=== PATIENT | female | born 1950 | race Caucasian/White ===

== ENCOUNTER 2021-05-14 07:15 | Outpatient (REF) | payer MEDICARE, BC, SELFPAY ==
[2021-05-14 10:47] LABS: MANUAL DIFF FLAG NO
[2021-05-14 10:49] LABS: Basophils Percent Auto 0.7 % (0-2); Eosinophils Absolute Auto 0.4 X10*3/uL (0.0-0.4); Eosinophils Percent Auto 7.1 % (0-4); Hematocrit 44.4 % (37.0-47.0); Hemoglobin 14.4 g/dl (12.0-16.0); Imm Gran Abs Auto 0.01 X10*3/uL (0.00-0.03); Imm Gran Pct Auto 0.2 % (0.0-0.4); Lymphocytes Percent Auto 34.4 % (20-40); Mean Corpuscular HGB Conc 32.4 g/dl (31.0-35.0); Mean Corpuscular Hemoglobin 30.6 pg (27.0-33.0); Mean Corpuscular Volume 94.5 fL (80.0-98.0); Mean Platelet Volume 10.9 fL (9.4-12.3); Monocytes Absolute Auto 0.5 X10*3/uL (0.1-1.2); Neutrophils Absolute Auto 2.9 x10*3/uL (2.0-8.3); Neutrophils Percent Auto 49.6 % (45-73); Platelet Count 281 X10*3/uL (160-400); Red Cell Distribution Width 13.2 % (11.0-16.0); White Blood Count 5.9 X10*3/uL (4.8-10.8)
[2021-05-14 11:14] LABS: Alanine Aminotransferase 13 U/L (0-31); Albumin Level 3.9 g/dL (3.5-5.0); Alkaline Phosphatase 84 U/L (39-117); Anion Gap 9 (12-20); Aspartate Amino Transferase 16 U/L (5-31); Bilirubin Total 0.4 mg/dL (0.0-1.0); Blood Urea Nitrogen 13 mg/dL (9-16); Calcium 8.9 mg/dL (8.4-10.2); Carbon Dioxide 28 mmol/L (22-29); Chloride 108 mmol/L (96-108); Cholesterol 199 mg/dL; Estimated Glomerular Filt Rate > 60; Glucose Fasting 100 mg/dL (60-99); HDL Cholesterol 50 mg/dL; LDL Cholesterol Calculated 124 mg/dl; Potassium 4.1 mmol/L (3.3-5.1); Sodium 141 mmol/L (135-145); Total Protein 6.5 g/dL (6.5-8.0); Triglycerides 125 mg/dL
[2021-05-14 11:24] LABS: Thyroid Stimulating Hormone 1.13 uIU/mL (0.32-4.0); Vitamin D 25-OH Total 23.8 ng/mL (>30)
== END 2021-05-14 07:16 | disposition home or self-care (01) ==
LOC: HO.WFDLDS 07:15
PROVIDERS: Visit Provider Internal Medicine
DX: M25.561 Pain in right knee (principal); G47.9 Sleep disorder, unspecified
CPT/HCPCS: 36415; 80053; 80061; 82306; 84443; 85025

== ENCOUNTER 2021-05-16 06:59 | Outpatient (REF) | payer MEDICARE, BC, SELFPAY ==
--- NOTE | ~2021-05-16 | XR_ITS ---
EXAMINATION: KNEE X-RAY CLINICAL INFORMATION: Right knee pain COMPARISON: None TECHNIQUE: Standing AP view of both knees and lateral and sunrise view of the right knee FINDINGS: Right: Bone alignment is normal. No fracture or dislocation is seen. There is arthritis at the femoral tibial and patellofemoral joints. There is no joint effusion. Standing AP view of the left knee demonstrates joint space narrowing at the femoral tibial joints. XR/XR knee RT 2V IMPRESSION: Right knee arthritis.
--- NOTE | ~2021-05-16 | XR_ITS ---
EXAMINATION: KNEE X-RAY CLINICAL INFORMATION: Right knee pain COMPARISON: None TECHNIQUE: Standing AP view of both knees and lateral and sunrise view of the right knee FINDINGS: Right: Bone alignment is normal. No fracture or dislocation is seen. There is arthritis at the femoral tibial and patellofemoral joints. There is no joint effusion. Standing AP view of the left knee demonstrates joint space narrowing at the femoral tibial joints. XR/XR knee standing BI IMPRESSION: Right knee arthritis.
== END 2021-05-16 07:00 | disposition home or self-care (01) ==
LOC: HO.HOSX 06:59
PROVIDERS: Visit Provider Physician Assistant
DX: M17.0 Bilateral primary osteoarthritis of knee (principal)
CPT/HCPCS: 73560; 73565

== ENCOUNTER 2021-09-24 11:00 | Outpatient (RCR) | payer MEDICARE, SELFPAY ==
--- NOTE | 2021-06-04 12:48 | MHC.PT.EP ---
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 Pt REPORTS KNEE HAS BEEN HURTING HER FOR ABOUT 1 MONTH WITHOUT INJURY BUT REPORTS SOME HX OF KNEE ISSUES. PRESENTS WITH LIMITED KNEE EXTENSION, POOR QUAD CONTRACTION, GENU VALGUS, PAIN WITH STAIRS. OF NOTE, Pt'S R LEG WITH GREATER GIRTH THAN L. (Pt REPORTS IT HAS ALWAYS BEEN LIKE THIS). Pt SHOULD BENEFIT FROM PT TO ADDRESS THESE ISSUES. Pt WITH NEG MENISCUS TEST, BUT C/O SHARP PAIN AT TIMES. IF THIS CONTINUES, MAY BE APPROPRIATE TO HAVE MRI Frequency and Duration: The patient will be seen 2X/WK X 2 WKS THEN 1X/WK X 2-4 WKS Short Term Goals: 1. INCREASED AWARENESS KNEE CARE WITH SELF TAPING 2. I HEP WITH DC EX PLAN Assisted Goals: 1. DECREASED PAIN R KNEE ( SHARP PAIN) AT LEAST 50 % WITH ADLS 2. NO R KNEE BUCKLING INCIDENTS 3. IMPROVED STAIR NEGOTIATION AND WALKING DISTANCE WITH LESS KNEE PAIN/ STIFFNESS Treatment Plan: Modalities to reduce pain, spasms and effusion. Manual therapy to restore motion and function. Therapeutic exercise to improve strength and flexibility. Neuromuscular re-education for posture and balance. Therapeutic activities to return to functional activities of daily living. Electronically signed by: BARBARA SANDY PT Please sign and return to therapist. Thank you for your referral.
--- NOTE | 2021-09-24 11:59 | MHC.PT.DC ---
[facility] [place] Office [place] Office [place] Office [address] Claire Norton [address] [phone] F: [phone] F: [phone] F: [phone] F: [phone] Physical Therapy Discharge Report Diagnosis: KNEE PAIN Date of Surgery: NA Date of Evaluation: 06/04/21 Date of Discharge: 09/24/21 Treatments to Date: 7 Cancellations to Date: No Shows to Date: Discharge Status: Achieved Goals Improved Function Independent with HEP Discharge Summary: SOME DISCOMFORT LAT L KNEE WITH SL HIP ABD (ED TO MONITOR, IF CONTINUES, DC THIS EXERCISE) HAS MET PT GOALS Electronically signed by: BARBARA SANDY PT Please sign and return to therapist. Thank you for your referral.
== END 2021-09-24 11:59 | disposition home or self-care (01) ==
LOC: HO.PTWFD 11:00
PROVIDERS: PCP Internal Medicine; Visit Provider Physician Assistant
DX: M17.0 Bilateral primary osteoarthritis of knee (principal)
CPT/HCPCS: 97110; 97140; 97161; 97535

== ENCOUNTER 2021-11-07 09:43 | Emergency (ER) | payer MEDICARE, SELFPAY ==
[2021-11-07 09:53] VITALS: BP 202/97; PULSE 78; RESP 20; O2SAT 98; BMI 28.6
--- NOTE | 2021-11-07 10:09 | ED.ALLEREA ---
HPI - Allergic Reaction General Chief complaint: Allergic Reaction Stated complaint: ALLERGIC REACTION Time Seen by Provider: 11/07/21 10:09 Source: patient Mode of arrival: EMS History of Present Illness HPI narrative: 71-year-old female was brought in by EMS after she was stung by multiple bees while gardening, she took some Benadryl and then stated she became concerned because her mouth was dry and she felt some scratchiness at the back her throat but denies any facial/lip/tongue swelling. Patient went to the urgent care and at that facility patient received Benadryl, steroids, EpiPen and then was transported here by EMS for evaluation. Currently patient states she is breathing without difficulty, has some scratchiness at the back of her throat but denies any swelling within her mouth or tongue. Related Data Previous Rx's Medication Instructions Recorded epinephrine 0.3 mg/0.3 mL 0.3 mg (0.3 mL) IM Q5M PRN 11/07/21 injection, auto-injector anaphylaxis #2 ea Allergies Allergy/AdvReac Type Severity Reaction Status Date / Time midazolam [From VERSED] Allergy Unknown AMNESIA Verified 05/16/21 08:16 FOR ONE WEEK Review of Systems Review of Systems: Pertinent positives and negatives as stated in HPI 10 point review of systems is otherwise negative. PMFSH Past Medical History Source: nursing notes reviewed Medical History (Updated 11/07/21 @ 12:45 by Shireen Alexandra MD) Colostomy in place Surgical History (Updated 05/16/21 @ 08:19 by Kari Livingston CMA) H/O section History of cataract surgery Social History Social History (Updated 05/16/21 @ 08:17 by Kari Livingston CMA) Patient Tobacco Use Status: Never used Tobacco Use of substances other than those prescribed or required for medical reasons: No Advance Directives: Yes Advance Directives Information Provided: Yes Advance Directives on File: No Current occupational status: retired Physical Exam ED Vital Signs: Vital Signs - 24 hr 11/07/21 09:53 Pulse Rate 78 Respiratory Rate 20 Blood Pressure 202/97 H Pulse Oximetry 98 Oxygen Delivery Method Room Air BMI result Body Mass Index 28.6 VITAL SIGNS: Reviewed. GENERAL: Well developed, well nourished, in no acute distress. HEAD: Normocephalic/atraumatic EYES: PERRLA, EOMI EARS: Ext canals without abnormality NOSE: Nares patent bilateral OROPHARYNX: no oral lesions noted, posterior pharynx clear, no facial/lip/tongue swelling NECK: Supple, no adenopathy LUNGS: Normal breath sounds, no tachypnea/wheeze/rhonchi/rales, no stridor. SpO2<98> CARDIOVASCULAR: Regular rate and rhythm without noted murmurs, no JVD or lower extremity edema. ABDOMEN: Soft, non-tender, non-distended with bowel sounds. MUSCULOSKELETAL: No tenderness, deformities, or effusions noted on gross inspection. EXTREMITIES: No cyanosis, clubbing or edema. SKIN: Inspection of the skin reveals no rashes NEUROLOGIC: Alert and oriented x 4. Strength and sensation to light touch were grossly intact x 4. Course Course Course Narrative: 71-year-old female with multiple bee stings and no overt evidence anaphylaxis or angioedema, however with scratchy throat patient was fully treated, denies any chest pain and otherwise appears well and is hemodynamically stable. She will be placed on monitors for 4 hours. Discharge Plan Discharge Clinical Impression: Bee sting reaction, Allergic reaction Patient Disposition: Home, Self-Care Instructions: Insect Bite or Sting (ED), General Allergic Reaction (ED) Additional Instructions: 1. You have been prescribed an EpiPen and should carry this with you at all times. 2. Please follow-up with primary care provider. Return to the ER for worsening symptoms. Prescriptions: New epinephrine 0.3 mg/0.3 mL auto-injector 0.3 mg IM Q5M PRN (Reason: anaphylaxis) Qty: 2 0RF Referrals: Rudy Chatterjee DO [Primary Care Provider] -
--- NOTE | 2021-11-07 11:11 | PC.NURSE ---
Pt resting comfortably, offers no complaints at this time. NSR on tele. No edema to mouth/lips, LS CTA. Speaking full sentences
[2021-11-07 12:51] VITALS: BP 134/85; PULSE 89; RESP 18; O2SAT 98
--- NOTE | 2021-11-07 13:26 | PC.NURSE ---
PT AWAKE, ALERT AND ORIENTED X 3. SKIN WARM AND DRY. RESP UNLABORED. DENIES N/V. AIRWAY PATENT. MANAGING SECRETIONS. SPEAKING IN FULL CLEAR SENTENCES NO ACUTE DISTRESS NOTED. IV REMOVED. AGREEABLE TO DC HOME.
== END 2021-11-07 13:32 | disposition home or self-care (01) ==
PROVIDERS: Emergency Provider Student in an Organized Health Care Education/Training Program; PCP Internal Medicine
DX: T63.441A Toxic effect of venom of bees, accidental (unintentional), initial encounter (principal); Y93.9 Activity, unspecified; Y92.9 Unspecified place or not applicable; Y99.9 Unspecified external cause status; Z79.899 Other long term (current) drug therapy
CPT/HCPCS: 99283; 99284

== ENCOUNTER 2022-05-18 09:05 | Outpatient (REF) | payer MEDICARE, SELFPAY ==
[2022-05-18 11:41] LABS: MANUAL DIFF FLAG NO
[2022-05-18 12:06] LABS: Basophils Percent Auto 0.4 % (0-2); Eosinophils Absolute Auto 0.3 X10*3/uL (0.0-0.4); Hematocrit 44.3 % (37.0-47.0); Hemoglobin 14.6 g/dl (12.0-16.0); Imm Gran Abs Auto 0.01 X10*3/uL (0.00-0.03); Imm Gran Pct Auto 0.1 % (0.0-0.4); Lymphocytes Absolute Auto 1.8 X10*3/uL (1.2-4.9); Mean Corpuscular Hemoglobin 30.9 pg (27.0-33.0); Mean Corpuscular Volume 93.9 fL (80.0-98.0); Mean Platelet Volume 11.4 fL (9.4-12.3); Monocytes Absolute Auto 0.5 X10*3/uL (0.1-1.2); Monocytes Percent Auto 7.1 % (2-11); Neutrophils Absolute Auto 4.2 x10*3/uL (2.0-8.3); Neutrophils Percent Auto 62.4 % (45-73); Platelet Count 214 X10*3/uL (160-400); Red Blood Count 4.72 X10*6/uL (4.20-5.50); Red Cell Distribution Width 13.2 % (11.0-16.0); White Blood Count 6.8 X10*3/uL (4.8-10.8)
[2022-05-18 12:22] LABS: Alanine Aminotransferase 11 U/L (0-31); Albumin Level 3.9 g/dL (3.5-5.0); Alkaline Phosphatase 88 U/L (39-117); Anion Gap 12 (12-20); Aspartate Amino Transferase 17 U/L (5-31); Bilirubin Total 0.6 mg/dL (0.0-1.0); Blood Urea Nitrogen 14 mg/dL (9-16); Carbon Dioxide 27 mmol/L (22-29); Chloride 109 mmol/L (96-108); Cholesterol 209 mg/dL; Estimated Glomerular Filt Rate > 60; Glucose Fasting 93 mg/dL (60-99); HDL Cholesterol 52 mg/dL; LDL Cholesterol Calculated 134 mg/dl; Potassium 4.6 mmol/L (3.3-5.1); Sodium 143 mmol/L (135-145); Total Protein 6.2 g/dL (6.5-8.0); Triglycerides 116 mg/dL
[2022-05-18 12:43] LABS: Vitamin B12 497 pg/mL (200-900); Vitamin D 25-OH Total 21.4 ng/mL (>30)
== END 2022-05-18 09:06 | disposition home or self-care (01) ==
LOC: HO.WFDLDS 09:05
PROVIDERS: Visit Provider Internal Medicine
DX: G47.9 Sleep disorder, unspecified (principal); J45.20 Mild intermittent asthma, uncomplicated; G62.9 Polyneuropathy, unspecified; E55.9 Vitamin D deficiency, unspecified; E78.00 Pure hypercholesterolemia, unspecified
CPT/HCPCS: 36415; 80053; 80061; 82306; 82607; 82746; 84443; 85025

== ENCOUNTER 2023-04-12 08:13 | Outpatient (REF) | payer MEDICARE, SELFPAY ==
[2023-04-12 10:41] LABS: Total Protein 6.7 g/dL (6.5-8.0)
[2023-04-12 11:03] LABS: Vitamin D 25-OH Total 24.2 ng/mL (>30)
[2023-04-13 13:28] LABS: Gliadin Deamidated IgA Ab <1.0 U/mL; Gliadin Deamidated IgG Ab <1.0 U/mL; Transglutaminase Ab IgG <1.0 U/mL; Transglutaminase IgA <1.0 U/mL
[2023-04-13 16:47] LABS: Immunoglobulin A 173 mg/dL (70-320); Immunoglobulin G 901 mg/dL (600-1540); Immunoglobulin M 106 mg/dL (50-300)
[2023-04-15 16:24] LABS: Neutrophil Cyto Ab Screen NEGATIVE (NEGATIVE)
[2023-04-19 12:09] LABS: Prot Elec - Alpha1 0.2 g/dL (0.2-0.3); Prot Elec - Alpha2 0.6 g/dL (0.5-0.9); Prot Elec - Beta 1 0.4 g/dL (0.4-0.6); Prot Elec - Beta 2 0.3 g/dL (0.2-0.5); Prot Elec - Gamma 0.8 g/dL (0.8-1.7); Prot Elec - Total Protein 6.3 g/dL (6.1-8.1)
[2023-04-21 15:12] LABS: Anti Nuclear Antibody Screen NEGATIVE (NEGATIVE)
== END 2023-04-12 08:14 | disposition home or self-care (01) ==
LOC: HO.LAB 08:13
PROVIDERS: Visit Provider Ophthalmology
DX: H04.123 Dry eye syndrome of bilateral lacrimal glands (principal); H57.13 Ocular pain, bilateral
CPT/HCPCS: 82040; 82306; 82784; 84155; 84165; 86036; 86038; 86258; 86364

== ENCOUNTER 2023-06-26 10:23 | Outpatient (REF) | payer MEDICARE, SELFPAY ==
[2023-06-26 10:53] LABS: MANUAL DIFF FLAG NO
[2023-06-26 11:26] LABS: Basophils Percent Auto 0.5 % (0-2); Eosinophils Absolute Auto 0.3 X10*3/uL (0.0-0.4); Eosinophils Percent Auto 4.7 % (0-4); Hematocrit 46.1 % (37.0-47.0); Hemoglobin 14.8 g/dl (12.0-16.0); Imm Gran Abs Auto 0.02 X10*3/uL (0.00-0.03); Imm Gran Pct Auto 0.3 % (0.0-0.4); Lymphocytes Absolute Auto 1.8 X10*3/uL (1.2-4.9); Lymphocytes Percent Auto 29.2 % (20-40); Mean Corpuscular HGB Conc 32.1 g/dl (31.0-35.0); Mean Corpuscular Hemoglobin 30.5 pg (27.0-33.0); Mean Corpuscular Volume 94.9 fL (80.0-98.0); Monocytes Absolute Auto 0.5 X10*3/uL (0.1-1.2); Monocytes Percent Auto 7.7 % (2-11); Neutrophils Absolute Auto 3.5 x10*3/uL (2.0-8.3); Neutrophils Percent Auto 57.6 % (45-73); Platelet Count 227 X10*3/uL (160-400); Red Blood Count 4.86 X10*6/uL (4.20-5.50); Red Cell Distribution Width 13.1 % (11.0-16.0)
[2023-06-26 12:11] LABS: Alanine Aminotransferase 11 U/L (0-31); Albumin Level 4.1 g/dL (3.5-5.0); Alkaline Phosphatase 89 U/L (39-117); Anion Gap 11 (12-20); Aspartate Amino Transferase 17 U/L (5-31); Bilirubin Total 0.5 mg/dL (0.0-1.0); Blood Urea Nitrogen 14 mg/dL (9-16); C Reactive Protein 0.26 mg/dL (< or = 0.50); Carbon Dioxide 28 mmol/L (22-29); Chloride 107 mmol/L (96-108); Estimated Glomerular Filt Rate > 60; Glucose Random 104 mg/dL (60-115); Sodium 142 mmol/L (135-145)
[2023-06-26 12:36] LABS: Erythrocyte Sedimentation Rate 4 MM/HR (0-20)
[2023-06-28 16:37] LABS: Immunoglobulin G Subclass 1 538 mg/dL (382-929); Immunoglobulin G Subclass 2 265 mg/dL (241-700); Immunoglobulin G Subclass 3 31 mg/dL (22-178); Immunoglobulin G Subclass 4 60.2 mg/dL (4-86); Immunoglobulin G Total 904 mg/dL (600-1540)
[2023-06-28 23:39] LABS: Scleroderma 70 Antibody <1.0 NEG AI (<1.0 NEG)
[2023-06-29 12:28] LABS: IgA 184 mg/dL (70-320); IgG 989 mg/dL (600-1540); IgM 112 mg/dL (50-300)
[2023-06-29 13:58] LABS: Transglutaminase Ab IgG <1.0 U/mL; Transglutaminase IgA <1.0 U/mL
[2023-06-30 13:43] LABS: Beta-2 Glycoprotein IgA <2.0 U/mL (<20.0); Beta-2 Glycoprotein IgG <2.0 U/mL (<20.0); Beta-2 Glycoprotein IgM <2.0 U/mL (<20.0)
[2023-06-30 14:25] LABS: Immunoglobulin E 512 kU/L (<OR=114)
[2023-06-30 15:13] LABS: Cardiolipin IgG Ab <2.0 GPL-U/mL; Cardiolipin IgM Ab <2.0 MPL-U/mL
[2023-07-01 10:14] LABS: Anti Nuclear Antibody Pattern Nuclear, Speckled; Anti Nuclear Antibody Screen POSITIVE (NEGATIVE); Anti Nuclear Antibody Titer 1:40 titer
== END 2023-06-26 10:24 | disposition home or self-care (01) ==
LOC: HO.LAB 10:23
PROVIDERS: PCP Internal Medicine; Visit Provider Allergy & Immunology
DX: T78.40XA Allergy, unspecified, initial encounter (principal); X58.XXXA Exposure to other specified factors, initial encounter; Y93.9 Activity, unspecified; Y92.9 Unspecified place or not applicable; Y99.9 Unspecified external cause status
CPT/HCPCS: 36415; 80053; 82784; 82785; 83520; 85025; 85652; 86038; 86039; 86140; 86146; 86147; 86160; 86235; 86317; 86334; 86364

== ENCOUNTER 2023-09-28 06:26 | Day surgery (SDC) | payer MEDICARE, SELFPAY ==
--- NOTE | 2023-09-27 10:11 | HO.ANESPROP2 ---
Documented by User: Lynda Michaud NP 09/27/23 10:12 HPI - Anesthesia Eval Consult details Narrative: 73yo F for Colonoscopy Reports allergy to midazolam Ostomy in situ PMFSH Active Problems Active Problems: All Active Problems Bilateral primary osteoarthritis of knee (Acute) Past Medical History Medical History GERD (gastroesophageal reflux disease) Colostomy in place Surgical History Surgical History History of reversal of ileostomy History of colostomy reversal Hx of colonoscopy Hx of esophagogastroduodenoscopy History of cataract surgery H/O section Social History Social History Patient Tobacco Use Status: Never used Tobacco Are you DNR?: No Advance Directives: No Advance Directives Information Provided: Yes Nutrition Risks: No Nutritional Risk Current occupational status: retired Meds Allergies Allergy/AdvReac Type Severity Reaction Status Date / Time zoster vaccine live Allergy Severe Anaphylaxis Verified 09/28/23 06:53 [From Zostavax (PF)] midazolam [From VERSED] Allergy Unknown AMNESIA Verified 09/28/23 06:43 FOR ONE WEEK acetaminophen [From Percocet] Allergy Nausea and Verified 09/28/23 06:53 Vomiting oxycodone [From Percocet] Allergy Unknown Verified 09/28/23 06:43 Exam Pertinent Lab Results Pertinent Lab Results: Laboratory Tests 06/26/23 10:50 WBC 6.0 Hgb 14.8 Hct 46.1 Plt Count 227 Sodium 142 Potassium 4.0 Chloride 107 Carbon Dioxide 28 BUN 14 Creatinine 0.81 Assessment and Plan Assessment Anesthesia Assessment: Chart Reviewed Documented by User: Cristal Ulrich MD 09/28/23 07:36 PMFSH Past Medical History Medical History GERD (gastroesophageal reflux disease) Colostomy in place Family History Family history of problems with anesthesia: No Surgical History Surgical History History of reversal of ileostomy History of colostomy reversal Hx of colonoscopy Hx of esophagogastroduodenoscopy History of cataract surgery H/O section History of Problems with Anesthesia: No Social History Social History Patient Tobacco Use Status: Never used Tobacco Are you DNR?: No Advance Directives: No Advance Directives Information Provided: Yes Nutrition Risks: No Nutritional Risk Current occupational status: retired Meds Allergies Allergy/AdvReac Type Severity Reaction Status Date / Time zoster vaccine live Allergy Severe Anaphylaxis Verified 09/28/23 06:53 [From Zostavax (PF)] midazolam [From VERSED] Allergy Unknown AMNESIA Verified 09/28/23 06:43 FOR ONE WEEK acetaminophen [From Percocet] Allergy Nausea and Verified 09/28/23 06:53 Vomiting oxycodone [From Percocet] Allergy Unknown Verified 09/28/23 06:43 Exam Airway Mallampati Class: II TM Dist: >3cm Neck ROM: Full Heart: rrrcta Assessment and Plan Assessment Anesthesia Assessment: Anesthesia Plan Discussed Final Anesthetic Review Family History of Problems with Anesthesia: No History of Problems with Anesthesia: No NPO: Yes ASA Class: III Final Preanesthetic Review: No Changes in Pt Med Stat, Meds/Allgs Chart Reviewed, Consent Obtained/Reviewed and Anes Risks/Benef Reviewed Patient Risk: Intermediate Procedure Risk: Low Anesthetic Plan Anesthetic Plan: MAC: Disposition: Standard PACU
[2023-09-28 06:40] VITALS: BMI 26.3
[2023-09-28 06:54] VITALS: BP 166/97; PULSE 88; RESP 18; TEMP 36.6; O2SAT 97
[2023-09-28] MEDS: Lactated Ringers 1,000 ML 100 ML IVCONT (07:21)
--- NOTE | 2023-09-28 07:28 | PC.NURSE ---
Patient refused to have IV placed until she spoke with regarding not having anesthesia today. Anesthesia consent was signed with dr. roca in the event that it was required. Iv placed in preop prior to going into procedure with patient agreeance.
--- NOTE | 2023-09-28 07:29 | MHC.SHP ---
Pre-Procedural Eval Section A - 24 Hr Update-Section A only Date of Service: 09/28/23 Section B - Complete if H&P > 30 days Chief Complaint: Right lower quadrant pain Details of Present Illness: sewe H&P no changes Relevant Family History (Specify if Yes): No Relevant Social History: None Present Medications: see Short Stay Collaborative assessment Medical History: No relevant PMH History of Previous Operations: No relevant previous surgery Allergies: Allergies Allergy/AdvReac Type Severity Reaction Status Date / Time zoster vaccine live Allergy Severe Anaphylaxis Verified 09/28/23 06:53 [From Zostavax (PF)] midazolam [From VERSED] Allergy Unknown AMNESIA Verified 09/28/23 06:43 FOR ONE WEEK acetaminophen [From Percocet] Allergy Nausea and Verified 09/28/23 06:53 Vomiting oxycodone [From Percocet] Allergy Unknown Verified 09/28/23 06:43 Review of Systems Sugical H&P ROS: Negative: Constitution, Cardiovascular, Respiratory, Neurological, Psychiatric, Hem-Onc, Allergic/Immunologic, Gastrointestinal, Genitourinary, Musculoskeletal, Integumentary, Endocrine and Eyes/Ears/Nose/Throat Exam Surgical H&P Exam: Normal: HEENT, Normal: Heart, Normal: Lungs, Normal: Extremities, Normal: Abdomen, Normal: Skin and Normal: Neurological Plan Diagnosis/Plan: Unchanged I have reviewed the history and physical and performed a pertinent physical examination on my patient. No changes have occurred unless specified. Time Spent With Patient Time: Total time managing care of this patient today ____ minutes.
[2023-09-28 07:30] VITALS: BP 185/104; PULSE 101; RESP 22; O2SAT 99
[2023-09-28 07:50] VITALS: BP 188/100; PULSE 72; RESP 16; O2SAT 100
[2023-09-28 07:59] VITALS: BP 176/93; PULSE 71; RESP 17; O2SAT 98
[2023-09-28 08:05] VITALS: BP 171/95; PULSE 90; RESP 20; TEMP 36.8; O2SAT 97
[2023-09-28 08:21] VITALS: BP 175/78; PULSE 83; RESP 20; TEMP 36.1; O2SAT 97
--- NOTE | 2023-09-28 08:32 | OP_ITS ---
DATE OF SERVICE: 09/28/2023 SURGEON: Grant Batista MD INDICATIONS: Right lower quadrant pain. PREOPERATIVE DIAGNOSIS: POSTOPERATIVE DIAGNOSIS: PROCEDURE PERFORMED: Colonoscopy to the terminal ileum with biopsy. ESTIMATED BLOOD LOSS: COMPLICATIONS: ANESTHESIA: Monitored anesthesia care. ASSISTANTS: SPECIMENS: DESCRIPTION OF PROCEDURE: A history and physical performed. The risks and benefits of the procedure were explained to the patient. Informed consent was obtained. The patient was placed in the left lateral decubitus position. A digital rectal exam was performed and was found to be normal. The Olympus pediatric video colonoscope was introduced into the rectum and advanced to the cecum. The cecum was identified by transillumination, palpation, and identification of ileocecal valve. Examination was performed. The scope was removed. She tolerated the procedure well and was returned to the recovery area in stable condition. FINDINGS: The terminal ileum was normal. This was biopsied. The visualized colonic mucosa was normal. The quality of prep was good. Random biopsies were obtained from the right colon and cecum because of the patient's history of right lower quadrant pain and no polyps were identified. There was a widely patent anastomosis at approximately 20 cm with some suture material or gisel present. There appeared to be no diverticular disease. Retroflexed examination showed some small internal hemorrhoids. IMPRESSION: Normal colonoscopy. RECOMMENDATIONS: 1. Follow up with the biopsy results. 2. CT scan to be arranged for further evaluation of right lower quadrant pain. MD CLAUDE Anguiano/MODL / [id number]
== END 2023-09-28 08:33 | disposition home or self-care (01) ==
PROVIDERS: PCP Internal Medicine; Visit Provider Internal Medicine Gastroenterology
PROC: 0DJD8ZZ Inspection of Lower Intestinal Tract, Via Natural or Artificial Opening Endoscopic (ICD-10-PCS; CPT 45378; principal; 2023-09-28 07:30)
DX: Z12.11 Encounter for screening for malignant neoplasm of colon (principal); K63.89 Other specified diseases of intestine; K64.8 Other hemorrhoids; R10.31 Right lower quadrant pain; K21.9 Gastro-esophageal reflux disease without esophagitis; Z93.3 Colostomy status; Z79.899 Other long term (current) drug therapy
CPT/HCPCS: 45380; 88305

== ENCOUNTER 2023-11-05 07:48 | Outpatient (REF) | payer MEDICARE, SELFPAY ==
[2023-11-05 08:00] LABS: MANUAL DIFF FLAG NO
[2023-11-05 08:28] LABS: Basophils Percent Auto 0.7 % (0-2); Eosinophils Absolute Auto 0.3 X10*3/uL (0.0-0.4); Eosinophils Percent Auto 4.6 % (0-4); Hematocrit 43.8 % (37.0-47.0); Hemoglobin 14.6 g/dl (12.0-16.0); Imm Gran Abs Auto 0.01 X10*3/uL (0.00-0.03); Imm Gran Pct Auto 0.2 % (0.0-0.4); Lymphocytes Absolute Auto 2.6 X10*3/uL (1.2-4.9); Lymphocytes Percent Auto 43.6 % (20-40); Mean Corpuscular HGB Conc 33.3 g/dl (31.0-35.0); Mean Corpuscular Hemoglobin 30.9 pg (27.0-33.0); Mean Corpuscular Volume 92.8 fL (80.0-98.0); Mean Platelet Volume 10.6 fL (9.4-12.3); Monocytes Absolute Auto 0.6 X10*3/uL (0.1-1.2); Monocytes Percent Auto 9.9 % (2-11); Neutrophils Absolute Auto 2.4 x10*3/uL (2.0-8.3); Platelet Count 206 X10*3/uL (160-400); Red Blood Count 4.72 X10*6/uL (4.20-5.50); White Blood Count 5.9 X10*3/uL (4.8-10.8)
[2023-11-05 09:22] LABS: Alanine Aminotransferase 12 U/L (0-31); Alkaline Phosphatase 82 U/L (39-117); Anion Gap 11 (12-20); Aspartate Amino Transferase 19 U/L (5-31); Bilirubin Total 0.6 mg/dL (0.0-1.0); Blood Urea Nitrogen 13 mg/dL (9-16); Calcium 8.9 mg/dL (8.4-10.2); Carbon Dioxide 27 mmol/L (22-29); Chloride 109 mmol/L (96-108); Cholesterol 217 mg/dL (<200); Estimated Glomerular Filt Rate > 60; Glucose Fasting 98 mg/dL (60-99); HDL Cholesterol 55 mg/dL (>40); LDL Cholesterol Calculated 141 mg/dL (<100); Potassium 3.9 mmol/L (3.3-5.1); Sodium 143 mmol/L (135-145); Total Protein 6.5 g/dL (6.5-8.0); Triglycerides 106 mg/dL (<150)
== END 2023-11-05 07:49 | disposition home or self-care (01) ==
LOC: HO.LAB 07:48
PROVIDERS: PCP Internal Medicine; Visit Provider Internal Medicine
DX: H26.9 Unspecified cataract (principal); J45.20 Mild intermittent asthma, uncomplicated; E78.00 Pure hypercholesterolemia, unspecified; M53.3 Sacrococcygeal disorders, not elsewhere classified; N39.41 Urge incontinence
CPT/HCPCS: 36415; 80053; 80061; 84443; 85025

== ENCOUNTER 2023-11-24 07:56 | Outpatient (REF) | payer MEDICARE, SELFPAY ==
--- NOTE | ~2023-11-24 | CT_ITS ---
EXAMINATION: CT ABDOMEN AND PELVIS WITH CONTRAST CLINICAL INFORMATION: Right lower quadrant abdominal pain. COMPARISON: None available. TECHNIQUE: Multidetector volumetric images were obtained from the superior aspect of the liver through the pubic symphysis following administration 85 mL of Omnipaque 350 intravenous contrast. Sagittal and coronal reformatted images were obtained on the technologist's workstation. Oral contrast: No This CT examination was performed using dose optimization techniques as appropriate, variously including the following: *Automated exposure control *Adjustment of mA and/or kV according to patient size (this includes techniques or standardized protocols for targeted exams where dose is matched to indication/reason for exam; i.e. extremities or head) *Use of iterative reconstruction technique DLP: 374 mGy-cm FINDINGS: LUNG BASES: The visualized lung bases are unremarkable. LIVER, GALLBLADDER, AND BILIARY TREE: The liver is normal in size, shape, and attenuation. No focal hepatic lesion or biliary ductal dilatation is present. No gallstones are seen. There is questionable wall thickening along the gallbladder fundus. No pericholecystic fluid. PANCREAS: Unremarkable. SPLEEN: Unremarkable. ADRENAL GLANDS: Unremarkable. KIDNEYS AND URETERS: The kidneys are normal in size, shape, and attenuation. No hydronephrosis, hydroureter, or calculi seen. No perinephric stranding. BLADDER: Unremarkable. GASTROINTESTINAL TRACT: The stomach is unremarkable. Normal caliber of the small bowel. No obstruction. Distal colonic anastomosis noted. No colonic wall thickening or inflammation. Normal appendix. ABDOMINAL WALL: No significant hernia is appreciated. LYMPH NODES: Normal. VASCULAR: Normal caliber aorta with mild atherosclerotic calcification. PELVIC VISCERA: Unremarkable. OSSEOUS STRUCTURES: No acute or suspicious osseous abnormality. CT/CT abdomen pelvis w IV con IMPRESSION: 1. No acute findings in the abdomen or pelvis. No inflammatory changes. Normal appendix. 2. Questionable wall thickening along the gallbladder fundus. No pericholecystic fluid. Consider ultrasound evaluation. Fleischner guidelines were followed. Electronically signed by: Solitario Oviedo MD 11/30/2023 09:14 AM EDT
[2023-11-24] MEDS: iohexoL 350 MG/ML 100 ML INFUS..BTL IV (08:33)
== END 2023-11-24 07:57 | disposition home or self-care (01) ==
LOC: HO.CT 07:56
PROVIDERS: PCP Internal Medicine; Visit Provider Internal Medicine
DX: R10.31 Right lower quadrant pain (principal)
CPT/HCPCS: 74177; Q9967

== ENCOUNTER 2023-12-06 08:34 | Outpatient (REF) | payer MEDICARE, SELFPAY ==
--- NOTE | ~2023-12-06 | US_ITS ---
EXAMINATION: US ABDOMEN COMPLETE CLINICAL INFORMATION: Abnormal findings in gallbladder. COMPARISON: CT abdomen and pelvis 11/24/2023. TECHNIQUE: Real-time imaging of the abdominal viscera. Limited visualization due to bowel gas. FINDINGS: PANCREAS: Limited visualization of pancreatic tail and head. Imaged portion of pancreatic body is unremarkable. ABDOMINAL AORTA: Atherosclerosis most notable in the mid to distal abdominal aorta. INFERIOR VENA CAVA: Visualized portions are normal. LIVER: Mildly heterogeneous hepatic echotexture. Limited visualization. GALLBLADDER: Cholelithiasis with 1.6 cm gallstone. Gallbladder wall thickness of 2 mm; however, please note that visualization is limited in the region of the questionable wall thickening along the gallbladder fundus as noted on report for CT abdomen and pelvis of 11/24/2023. COMMON BILE DUCT: Normal in caliber measuring 0.5 cm in diameter. RIGHT KIDNEY: No hydronephrosis. No renal calculi. Limited visualization. The kidney measures 10.0 cm in maximum dimension. LEFT KIDNEY: Mild left caliectasis. No obstructing renal calculi. Limited visualization. The kidney measures 10.2 cm in maximum dimension. SPLEEN: Limited visualization. The spleen measures 6.7 cm in maximum dimension. FREE FLUID: None. US/US abdomen complete IMPRESSION: 1. Cholelithiasis with 1.6 cm gallstone. Gallbladder wall thickness of 2 mm; however, please note that visualization is limited in the region of the questionable wall thickening along the gallbladder fundus as noted on report for CT abdomen and pelvis of 11/24/2023. 2. Mild left caliectasis. No obstructing renal calculi. 3. Atherosclerosis most notable in the mid to distal abdominal aorta. Electronically signed by: Rachel Andino MD 12/08/2023 01:13 PM EDT
== END 2023-12-06 08:35 | disposition home or self-care (01) ==
LOC: HO.US 08:34
PROVIDERS: PCP Internal Medicine; Visit Provider Internal Medicine Gastroenterology
DX: R93.2 Abnormal findings on diagnostic imaging of liver and biliary tract (principal)
CPT/HCPCS: 76700

== ENCOUNTER 2024-05-19 10:29 | Outpatient (AMB) | payer MEDICARE, SELFPAY ==
--- NOTE | 2024-05-19 10:34 | MHC.OFFVIS ---
Vital Signs 05/19/24 10:38 Height 5 ft 6 in Weight 170 lb BMI 27.4 Intake Visit Reasons: ANAESTHESIOLOGIST-SI joint Pain Intake Note: Lata 73 yr old female presents today as a new patient for a evaluation for her S.I joint pain. States pain started about 30 years ago. Pain is consistent, laying down worsens her pain. States she has tried P.T twice, last one was about 3 months ago and pain did not improve. Hx of back injection about 10 years with [facility]. Denies injury. She is also experiencing numbness and tingling in bilateral feet. EMG done 2 days ago in [place] with normal results as per patient. Allergies zoster vaccine live [From Zostavax (PF)] Allergy (Severe, Verified 05/19/24 10:38) Anaphylaxis midazolam [From VERSED] Allergy (Unknown, Verified 05/19/24 10:38) AMNESIA FOR ONE WEEK acetaminophen [From Percocet] Allergy (Verified 05/19/24 10:38) Nausea and Vomiting oxycodone [From Percocet] Allergy (Verified 05/19/24 10:38) Unknown Medication List - Last Reconciled 05/19/24 by Temitope Jose MD albuterol sulfate 90 mcg/actuation 1 inh inhalation QID PRN amitriptyline mg PO epinephrine 0.3 mg (0.3 mL) IM Q5M PRN loteprednol etabonate 0.5% (Lotemax) drps ophthalmic (eye) nirmatrelvir-ritonavir 300 mg (150 mg x 2)-100 mg (Paxlovid) 0 ea PO HPI Comments Details: Chronic back and hip pain. Saw a specialist who said that it was SI joint, that was 30 years ago. Had injection 1-2 times, 10 years ago at [facility], resolved the pain. No MRI done that she can remember. Since then, constant pain, minor, tolerable. However in the last few months been worse at night. Right side. If she over exerts, she would feel it going to right buttocks, not lower. Right leg does feel weaker, and can trip on that right if not careful, on stairs. History of right knee arthritis. Right ankle/foot sometimes feel that it goes out of place. Having mild numbness on fingers and toes, suspected neuropathy, but EMG normal. Non diabetic, no kidney, thyroid or cancer history. Last PT 3 months, 5 weeks, 2-3 sessions per week. EMG done 2 days ago in [place] with normal results as per patient. [facility] Medical History GERD (gastroesophageal reflux disease) Colostomy in place Surgical History History of reversal of ileostomy History of colostomy reversal Hx of colonoscopy Hx of esophagogastroduodenoscopy History of cataract surgery H/O section Social History Patient Tobacco Use Status: Never used Tobacco Current occupational status: retired Review of Systems Const All systems reviewed & are unremarkable except as noted in HPI and below Physical Exam Vital Signs: BMI result Body Mass Index 27.4 Constitutional: Patient appears to be in no acute distress, well nourished and well developed. Patient was appropriately conversant and oriented. Good historian. MSK: No specific abnormalities found on inspection of the spine and all extremities. No pain with palpation over the lumbar area. Right SI joint tender. GT mildly tender. Lumbar ROM was full. Bilateral hip, knee and ankle ROM WNL. No ligamentous laxity or crepitance. No increased effusion. Right slump sit positive? Right knee felt warm compared to left, effusion, tender on medial joint line. Good patellar tracking. Negative pain on varus and valgus test. No edema on legs. No tenderness or swelling on ankle. Strength is 5/5 in all muscle groups tested. No increased tone noted. Neurological: Neurologic examination of the upper and lower extremities was nonfocal with intact sensation, muscle stretch reflexes and without focal motor deficits . Hip flexion appeared normal but patient had to put in a lot of exertion. Bach?s negative bilaterally. Babinski was down going bilaterally. Clonus was negative. Gait is non-antalgic without loss of balance. Results Reviewed Results Reviewed: No recent imaging for me to review. Assessment & Plan Assessment & Plan (1) Chronic right SI joint pain: Code(s): M53.3 - Sacrococcygeal disorders, not elsewhere classified; G89.29 - Other chronic pain Category: Medical (2) Right ankle pain: Code(s): M25.571 - Pain in right ankle and joints of right foot Category: Medical Qualifiers: Chronicity: chronic Qualified Code(s): M25.571 - Pain in right ankle and joints of right foot; G89.29 - Other chronic pain (3) Right knee DJD: Code(s): M17.11 - Unilateral primary osteoarthritis, right knee Category: Medical Qualifiers: Osteoarthritis type: primary Qualified Code(s): M17.11 - Unilateral primary osteoarthritis, right knee (4) Right lumbar radiculitis: Code(s): M54.16 - Radiculopathy, lumbar region Category: Medical Plan She was told in the past that her symptoms are from right SI joint. Injection only worked temporarily/partially. Discussed with patient that many times, right SI joint pain come from underlying disc herniation or nerve impingement at the right L5-S1 level. We should further investigate before deciding any further treatment or injections. Right leg could be radicular symptoms from the lumbar, but I also think based on exam that she has right knee arthritis. Possible right ankle arthritis. Patient had undergone adequate conservative management including PT without improvement of condition. It would be reasonable to obtain further imaging such as MRI. An MRI would help rule out any serious condition, guide treatment and assess prognosis for recovery. Specifically ruling out right L5-S1 disc herniation or nerve impingement. Sending patient for right knee and ankle x-rays today as well. Assessment and plan discussed with patient, and patient was agreeable. All questions were answered thoroughly. Follow up after MRI. Temitope Jose MD, GAVIN Board Certified, [place] [employer] and [employer] (ABPMR) Board Certified, [place] [employer] (ABEM) Orders: Orders XR ankle RT 2V Today M17.11 - Unilateral primary osteoarthritis, right knee, M25.571 - Pain in right ankle and joints of right foot XR knee RT 3V Today M17.11 - Unilateral primary osteoarthritis, right knee, M25.571 - Pain in right ankle and joints of right foot MR lumbar spine wo con Today G89.29 - Other chronic pain, M53.3 - Sacrococcygeal disorders, not elsewhere classified, M54.16 - Radiculopathy, lumbar region Coding Level of Care Code New Pt Level 4 (80483) Diagnoses Chronic right SI joint pain M53.3; G89.29 Chronic pain of right ankle M25.571; G89.29 Chronicity: chronic Primary osteoarthritis of right knee M17.11 Osteoarthritis type: primary Right lumbar radiculitis M54.16
[2024-05-19 10:38] VITALS: BMI 27.4
--- OUTSIDE RECORDS SUMMARY | 2024-05-19 11:56 | XMS_ITS ---
Author Organization [facility] Address [address] [place] [address] Care Team Providers Care Town Clerk Name Role Phone Sen (RETIRED) Rudy CRUZ Primary Care Provid er Unavailable Lester Christine, Grant Davis REASON FOR VISIT ultrasound Encounters Encounter Location Date Provider Diagnosis [facility] [address] [place] [address] 12/09/2023 Grant Batista Jr PLAN OF TREATMENT Next Appt Details Provider Name:Grant haines Jr, 07/26/2024 10:20:00 AM, [address], [address], [place], [address],
--- OUTSIDE RECORDS SUMMARY | 2024-05-19 11:57 | XMS_ITS ---
Author Organization Rudy Chatterjee DO, [facility] Address [address] [place] [phone] Care Team Providers Care Collar Stay Fuser Tender Name Role Phone Rudy Chatterjee Primary Care Provider ALLERGIES Allergen (clinical drug ingredient) Drug/Non Drug Allergy documented on EMR Reaction Allergy Type Onset Date Status Midazolam severe, protracted amnesia Drug Allergy Active REASON FOR VISIT 6 month f/u, Follow up Hypercholesterolemia MEDICATIONS Medication SIG (Take, Route, Frequency, Duration) Notes Start Date End Date Status Naltrexone HCl (Pain) 4.5 MG 1 capsule at bedtime Orally Once a day Active ZyrTEC Allergy 10 MG 1 tablet Orally Once a day Active Lotemax 0.5 % 1 drop into affected eye Ophthalmic Twice a day Active Albuterol Sulfate HFA 108 (90 Base) MCG/ACT 2 puffs as needed Inhalation every 6 hrs Active SOCIAL HISTORY Tobacco Use: Social History Observation Description Date Details (start date - stop date) Never Smoker NA - NA Sex Assigned At : Social History Observation Description Sex Assigned At Unknown Tobacco Use/Smoking Question Answer Notes Patient is a nonsmoker Additional Findings: Tobacco Non-User Cu rrent non-smoker, currently using no form of tobacco Alcohol Screen Question Answer Notes Did you have a drink containing alcohol in the p ast year? No Points 0 Interpretation Negative VITAL SIGNS Blood pressure systolic 92 mm Hg 02/01/20 24 Blood pressure diastolic 58 mm Hg 024 Height 67 in 02/01/2024 Encounters Encounter Location Date Provider Diagnosis Rudy Chatterjee DO, [facility] [address] [place], [place] [id number] 02/01/2024 Rudy Chatterjee Hypercholesterolemia E78.00 ; Mild intermittent asthma without complication J45.20 and Cataract of both eyes, unspecified cataract type H26.9 ASSESSMENTS Encounter Date Diagnosis Assessment Notes Treatment Notes Treatment Clinical Notes 02/01/2024 Hypercholesterolemia (ICD-10 - E78.00) Limit red meat in the diet 02/01/2024 Mild intermittent as thma without complication (ICD-10 - J45.20) 02/01/2024 Cataract of both eye s, unspecified cataract type (ICD-10 - H26.9) PLAN OF TREATMENT Medication Medication Name Sig Start Date Stop Date Notes Naltrexone HCl (Pain) 4.5 MG 1 capsule a t bedtime Orally Once a day ZyrTEC Allergy 10 MG 1 tablet Orally Once a day Lotemax 0.5 % 1 drop into affected eye Ophthalmic Twice a day Albuterol Sulfate HFA 108 (9 0 Base) MCG/ACT 2 puffs as needed Inhalation every 6 hrs Treatment Notes Assessment Notes Hypercholesterolemia Limit red meat in t he diet Next Appt Details Follow Up: 6 Months, Reason: follow up visit Progress Notes * Examination Category Sub-Category Detail Notes General Examination GENERAL APPEARANCE: in no ac serg distress, well developed, well nourished HEAD: normocephalic, atrau matic HEART: no murmurs, regular rate and rhythm, S1, S2 normal LUNGS: clear to auscultatio n bilaterally ABDOMEN: normal, bowel sounds present, soft, nontender, nondistended SKIN: warm and dry EXTREMITIES: no edema PSYCH: alert, oriented, cog nitive function intact
--- OUTSIDE RECORDS SUMMARY | 2024-05-19 11:57 | XMS_ITS | Patient Health Record ---
Author Organization Rudy Chatterjee DO, [facility] Address [address] [place] [phone] Care Team Providers Care Drywall Taper Helper Name Role Phone Rudy Chatterjee Primary Care Provider [phone] ALLERGIES Allergen (clinical drug ingredient) Drug/Non Drug Allergy documented on EMR Reaction Allergy Type Onset Date Status Midazolam severe, protracted amnesia Drug Allergy Active RESULTS Component Value Reference Range Notes Pathology Reviewed date:09/30/2023 01:24:46 PM Interpretation:Normal Performing Lab:[facility], [address] [place] [id number] Notes/Report: Complete Blood Count Auto Di ff Reviewed date:11/05/2023 09:03:30 AM Interpretation:Normal Performing Lab:[facility], [address] [place] [id number] Notes/Report: White Blood Count 5.9 4.8-10.8 X10*3/uL Red Blood Count 4.72 4.20-5.50 X10*6/uL Hemoglobin 14.6 12.0-16.0 g/dl Hematocrit 43.8 37.0-47.0 % Mean Corpuscular Volume 92.8 80.0-98.0 fL Mean Corpuscular Hemoglobin 30.9 27.0-33.0 pg Mean Corpuscular HGB Conc 33.3 31.0-35.0 g/dl Red Cell Distribution Width 13.0 11.0-16.0 % Platelet Count 206 160-400 X10*3/uL Mean Platelet Volume 10.6 9.4-12.3 fL Neutrophils Percent Auto 41.0 45-73 % Imm Gran Pct Auto 0.2 0.0-0.4 % Lymphocytes Percent Auto 43.6 20-40 % Monocytes Percent Auto 9.9 2-11 % Eosinophils Percent Auto 4.6 0-4 % Basophils Percent Auto 0.7 0-2 % NRBC Pct Auto 0.0 0.0-0.2 /100WBC Neutrophils Absolute Auto 2.4 2.0-8.3 x10*3/u L Imm Gran Abs Auto 0.01 0.00-0.03 X10*3/uL Lymphocytes Absolute Auto 2.6 1.2-4.9 X10*3/u L Monocytes Absolute Auto 0.6 0.1-1.2 X10*3/uL Eosinophils Absolute Auto 0.3 0.0-0.4 X10*3/u L Basophils Absolute Auto 0.0 0.0-0.2 X10*3/uL NRBC Abs Auto 0.000 0.0-0.012 X10*3/uL Comprehensive Starks. Panel Fa st Reviewed date:11/05/2023 12:41:16 PM Interpretation:Normal Performing Lab:[facility], [address] [place] [phone] Notes/Report: Sodium 143 135-145 mmol/L Potassium 3.9 3.3-5.1 mmol/L Chloride 109 96-108 mmol/L Carbon Dioxide 27 22-29 mmol/L Anion Gap 11 12-20 Blood Urea Nitrogen 13 9-16 mg/dL Creatinine 0.86 0.5-1.4 mg/dL Estimated Glomerular Filt Rate > 60 NOTE: For -[place] individuals, multiply the result by 1.210. Chronic Kidney Disease: Estimated GFR < 60 mL/min/1.73m2 Severe Kidney Disease: Estimated GFR < 15 mL/min/1.73m2 Glucose Fasting 98 60-99 mg/dL Calcium 8.9 8.4-10.2 mg/dL Bilirubin Total 0.6 0.0-1.0 mg/dL Aspartate Amino Transferase 19 5-31 U/L Alanine Aminotransferase 12 0-31 U/L Total Protein 6.5 6.5-8.0 g/dL Albumin Level 4.0 3.5-5.0 g/dL Alkaline Phosphatase 82 39-117 U/L Lipid Panel Reviewed date:11/05/2023 12:41:39 PM Interpretation:Abnormal Performing Lab:[facility], [address] [place] [phone] Notes/Report: Triglycerides 106 <150 mg/dL Desirable Triglyceride: less than 150 mg/dL Borderline High Triglyceride 150-199 mg/dL High Triglyceride: 200-499 mg/dL Very High Triglyceride: greater than or equal to 5OO mg/dL Cholesterol 217 <200 mg/dL Desirable Cholesterol: less than 200 mg/dL Borderline High Cholesterol: 200-239 mg/dL High Cholesterol: greater than 239 mg/dL LDL Cholesterol Calculated 141 <100 mg/dL Desirable LDL: less than 100 mg/dL Near Optimal/Above Optimal LDL: 110-129 mg/dL Borderline High LDL: 130-159 mg/dL High LDL: 160-189 mg/dL Very High LDL: greater than or equal to 190 mg/dL HDL Cholesterol 55 >40 mg/dL Desirable HDL: greater than 40 mg/dL Note: This HDL assay may give artificially low results in patients with liver disease. Thyroid Stimulating Hormone Reviewed date:11/05/2023 12:41:16 PM Interpretation:Normal Performing Lab:[facility], [address] [place] [phone] Notes/Report: Thyroid Stimulating Hormone 1.30 0.32-4.0 uIU/ mL TSH 3rd Generation ([facility]) CT abdomen pelvis w con Reviewed date:11/30/2023 12:44:09 PM Interpretation:Abnormal Performing Lab: Notes/Report: [address] [place] [address] CT Scan Report Signed Patient: Lata Mcbride MR#: [id number] : 1950 Acct:[id number] Age/Sex: 73 / F ADM Date: 11/24/23 Loc: HO.CT Attending Dr: Rudy Erickson MD Ordering Physician: Rudy Erickson MD Date of Service: 11/24/23 Procedure(s): CT abdomen pelvis w IV con Accession Number(s): [id number] cc: Rudy Chatterjee DO; Rudy Erickson MD EXAMINATION: CT ABDOMEN AND PELVIS WITH CONTRAST CLINICAL INFORMATION: Right lower quadrant abdominal pain. COMPARISON: None available. TECHNIQUE: Multidetector volumetric images were obtained from the superior aspect of the liver through the pubic symphysis following administration 85 mL of Omnipaque 350 intravenous contrast. Sagittal and coronal reformatted images were obtained on the technologist's workstation. Oral contrast: No This CT examination was performed using dose optimization techniques as appropriate, variously including the following: *Automated exposure control *Adjustment of mA and/or kV according to patient size (this includes techniques or standardized protocols for targeted exams where dose is matched to indication/reason for exam; i.e. extremities or head) *Use of iterative reconstruction technique DLP: 374 mGy-cm FINDINGS: LUNG BASES: The visualized lung bases are unremarkable. LIVER, GALLBLADDER, AND BILIARY TREE: The liver is normal in size, shape, and attenuation. No focal hepatic lesion or biliary ductal dilatation is present. No gallstones are seen. There is questionable wall thickening along the gallbladder fundus. No pericholecystic fluid. PANCREAS: Unremarkable. SPLEEN: Unremarkable. ADRENAL GLANDS: Unremarkable. KIDNEYS AND URETERS: The kidneys are normal in size, shape, and attenuation. No hydronephrosis, hydroureter, or calculi seen. No perinephric stranding. BLADDER: Unremarkable. GASTROINTESTINAL TRACT: The stomach is unremarkable. Normal caliber of the small bowel. No obstruction. Distal colonic anastomosis noted. No colonic wall thickening or inflammation. Normal appendix. ABDOMINAL WALL: No significant hernia is appreciated. LYMPH NODES: Normal. VASCULAR: Normal caliber aorta with mild atherosclerotic calcification. PELVIC VISCERA: Unremarkable. OSSEOUS STRUCTURES: No acute or suspicious osseous abnormality. CT/CT abdomen pelvis w IV con IMPRESSION: 1. No acute findings in the abdomen or pelvis. No inflammatory changes. Normal appendix. 2. Questionable wall thickening along the gallbladder fundus. No pericholecystic fluid. Consider ultrasound evaluation. Fleischner guidelines were followed. Electronically signed by: Solitario Oviedo MD 11/30/2023 09:14 AM EDT Dictated By: Solitario Oviedo MD Signed By: <Electronically signed by Solitario Oviedo MD in OV> 11/30/23913 DD/ 7 TD/TT: 11/24/2334 Neonatal Specialist: GRACIE ROY abdomen complete Reviewed date:12/10/2023 10:52:37 PM Interpretation:Abnormal Performing Lab: Notes/Report: [address] [address] Ultrasound Report Signed Patient: Lata Mcbride MR#: [id number] : 1950 Acct:[id number] Age/Sex: 73 / F ADM Date: 12/06/23 Loc: HO.US Attending Dr: Grant Batista MD Ordering Physician: Grant Batista MD Date of Service: 12/06/23 Procedure(s): US abdomen complete Accession Number(s): [id number] cc: Grant Batista MD; Rudy Chatterjee DO EXAMINATION: US ABDOMEN COMPLETE CLINICAL INFORMATION: Abnormal findings in gallbladder. COMPARISON: CT abdomen and pelvis 11/24/2023. TECHNIQUE: Real-time imaging of the abdominal viscera. Limited visualization due to bowel gas. FINDINGS: PANCREAS: Limited visualization of pancreatic tail and head. Imaged portion of pancreatic body is unremarkable. ABDOMINAL AORTA: Atherosclerosis most notable in the mid to distal abdominal aorta. INFERIOR VENA CAVA: Visualized portions are normal. LIVER: Mildly heterogeneous hepatic echotexture. Limited visualization. GALLBLADDER: Cholelithiasis with 1.6 cm gallstone. Gallbladder wall thickness of 2 mm; however, please note that visualization is limited in the region of the questionable wall thickening along the gallbladder fundus as noted on report for CT abdomen and pelvis of 11/24/2023. COMMON BILE DUCT: Normal in caliber measuring 0.5 cm in diameter. RIGHT KIDNEY: No hydronephrosis. No renal calculi. Limited visualization. The kidney measures 10.0 cm in maximum dimension. LEFT KIDNEY: Mild left caliectasis. No obstructing renal calculi. Limited visualization. The kidney measures 10.2 cm in maximum dimension. SPLEEN: Limited visualization. The spleen measures 6.7 cm in maximum dimension. FREE FLUID: None. US/US abdomen complete IMPRESSION: 1. Cholelithiasis with 1.6 cm gallstone. Gallbladder wall thickness of 2 mm; however, please note that visualization is limited in the region of the questionable wall thickening along the gallbladder fundus as noted on report for CT abdomen and pelvis of 11/24/2023. 2. Mild left caliectasis. No obstructing renal calculi. 3. Atherosclerosis most notable in the mid to distal abdominal aorta. Electronically signed by: Rachel Andino MD 12/08/2023 01:13 PM EDT RP Dictated By: Rachel Andino MD Signed By: <Electronically signed by Rachel Andino MD in OV> 12/08/23 1313 DD/ 0850 TD/TT: 12/06/23 0917 Neonatal Specialist: REASON FOR REFERRAL Reason Urge incontinence Diagnosis 1 Urge incontinence (N 39.41) Referral Organization Rudy Bai FACP Referring Provider First Name Rudy Referring Provider Last Name Sen Referring Provider Speciality Internal edicine Referred Provider Shireen Bryan Referred Provider Specialty Urology General Notes Page,Theresa 4 11:30:08 AM EDT > Rferral faxed prior to scheduling.Lacho Joan 08/04/2023 03:24:10 PM EDT > referral re-faxed Referral Priority Routine Referral Appointment Date 09/09/2023 Reason Right SI joint pain Right knee pain Diagnosis 1 Pain of right sacroi liac joint (M53.3) Referral Organization Rudy Bai FACP Referring Provider First Name Rudy Referring Provider Harjit Name Sen Referring Provider Speciality Internal edicine Referred Provider [facility] Physical Therapy [facility] Referred Provider Specialty Physical The rapist General Notes Page,Theresa 4 11:29:19 AM EDT > Referral faxed prior to scheduling, Marjan Monk 08/04/2023 03:23:25 PM EDT > referral re-faxed, Marjan Monk 08/04/2023 03:55:43 PM EDT > referral faxed manually Referral Priority Routine Referral Appointment Date 08/19/2023 Reason Lower right quadrant abdominal pain, new onset Diagnosis 1 Abdominal pain (R10. 9) Referral Organization Rudy Bai FACP Referring Provider First Name Rudy Referring Provider Harjit Name Sen Referring Provider Speciality Internal edicine Referred Provider Grant Batista Referred Provider Specialty Gastroentero logy General Notes Marjan Monk 024 01:15:09 PM EDT > referral faxed., Marjan Monk 08/11/2023 10:46:24 AM EDT >his office will offer next cancellation in Dr. Batista's schedule to patient. LMOVM for patient. Clinical Notes Marjan Monk 024 01:13:43 PM EDT > Patient is scheduled for 09/2023 office consult for f/u colonoscopy. However, she has new onset of lower right quadrant pain and hopes she may be seen sooner than September. Referral Priority Routine Reason Right Knee and Hip P ain Diagnosis 1 Right hip pain (M25. 551) Diagnosis 2 Other specified join t disorders, right knee (M25.861) Referral Organization Rudy Bai, FACP Referring Provider First Name Rudy Referring Provider Last Name Sen Referring Provider Speciality Internal M edicine Referred Provider Forrest Scott Referred Provider Specialty Orthopedic S urgery General Notes Theresa Egan 4 11:41:48 AM EST > Referral faxed prior to scheduling Referral Priority Routine MEDICATIONS Medication SIG (Take, Route, Frequency, Duration) [...] as needed Inhalation every 6 hrs Active IMMUNIZATIONS Vaccine Route Administration Date Status Comme nts Influenza Quad Unknown 02/07/2019 Administered Influenza IM Intramuscular 12/18/2019 Administered Influenza High Dose IM Intramuscular 01/01/2021 Administer ed COVID-19 Pfizer BioNTech Unknown 06/05/2020 Administere d Influenza Unknown 02/24/2012 Administered PCV 20 Unknown 07/22/2021 Administered COVID-19 Pfizer BioNTech Unknown 02/03/2021 Administere d Influenza Quad Unknown 02/07/2019 Administered COVID-19 Pfizer BioNTech Unknown 05/14/2020 Administere d COVID-19 Pfizer Bivalent Unknown 03/11/2022 Administere d Influnza High Dose Quad Unknown 01/04/2023 Administered Influenza High Dose Unknown 01/17/2024 Administered SOCIAL HISTORY Tobacco Use: Social History Observation [...] ast year? No Points 0 Interpretation Negative PROBLEMS Problem Type ICD Code Onset Dates Problem Status W/U Status Risk SNOMED Code Notes Problem Cataract of both eye s, unspecified cataract type (H26.9) Active confirmed 52687877 Problem Difficulty sleeping (G47.9) Active confirmed 872663588 Problem Mild intermittent asthma without complication (J45.20) Active confirmed 793482236 Problem Neuropathy (G62.9) Active confirmed 386 548902 Problem Vitamin D deficiency (E55.9) Active confirmed 31648344 Problem Hypercholesterolemia (E78.00) Active confirmed 03150015 Problem Urge incontinence (N39.41) Active confirmed 33753530 VITAL SIGNS Blood pressure diastolic 58 mm Hg 02/01/2024 Height 67 in 02/01/2024 Blood pressure systolic 92 mm Hg 02/01/2024 Encounters Encounter Location Date Provider Diagnosis Rudy Chatterjee DO, [address] [id number] 08/04/2023 Rudy Chatterjee Cataract of both eye s, unspecified cataract type H26.9 ; Mild intermittent asthma without complication J45.20 ; Hypercholesterolemia E78.00 ; Pain of right sacroiliac joint M53.3 and Urge incontinence N39.41 Rudy Chatterjee DO, [address] [id number] 02/01/2024 Rudy Chatterjee Hypercholesterolemia E78.00 ; Mild intermittent asthma without complication J45.20 and Cataract of both eyes, unspecified cataract type H26.9 Rudy Chatterjee DO, [address] [id number] 06/25/2023 Rudy Chatterjee DO, [address] [id number] 11/26/2023 Rudy Chatterjee DO, [address] [id number] 03/08/2024 Rudy Chatterjee ASSESSMENTS Encounter Date Diagnosis Assessment Notes Treatment Notes Treatment Clinical Notes 08/04/2023 Mild intermittent as thma without complication (ICD-10 - J45.20) 08/04/2023 Cataract of both eye s, unspecified cataract type (ICD-10 - H26.9) 02/01/2024 Mild intermittent as thma without complication (ICD-10 - J45.20) 02/01/2024 Hypercholesterolemia (ICD-10 - E78.00) Limit red meat in the diet 08/04/2023 Hypercholesterolemia (ICD-10 - E78.00) 02/01/2024 Cataract of both eye s, unspecified cataract type (ICD-10 - H26.9) 08/04/2023 Pain of right sacroi liac joint (ICD-10 - M53.3) 08/04/2023 Urge incontinence (I CD-10 - N39.41) PLAN OF TREATMENT No Information Insurance Providers Payer Name Payer Address Payer Phone Subscriber Number Group Number Insured Name Patient Relationship to Insured Coverage Start Date Coverage End Date [place]ICARE [address] [place] [phone] [id number] Lata Mcbride Self - patient is the insured MEDEX [address] [place] [address] [id number] Lata Mcbride Self - patient is the insured MEDICAL (GENERAL) HISTORY Medical History History ICD Code diverticulitis s/p surgery Difficulty sleeping G47.9 Hypercholesterolemia E78.00 Mild intermittent asthma without complic ation J45.20 Surgical History Surgery Date(Month/Year) section Diverticular surgery cataract-lens implants OU
--- OUTSIDE RECORDS SUMMARY | 2024-05-19 11:57 | XMS_ITS ---
Author Organization [facility] Address [address] [place] [address] Care Team Providers Care Fire Sprinkler Fitter Name Role Phone Sen (RETIRED) Rudy CRUZ Primary Care Provid er Unavailable Lester Christine, Grant Unavailable [phone] scan PROBLEMS Problem Type ICD Code Onset Dates Problem Status W/U Status Risk SNOMED Code Notes Problem Abnormal computed tomography of gallbladder (R93.2) Active confirmed [id number] Encounters Encounter Location Date Provider Diagnosis [facility] [address] [place] [address] 12/01/2023 Grant Batista Jr Abnormal computed tomography of gallbladder R93.2 ASSESSMENTS Encounter Date Diagnosis Assessment Notes Treatment Notes Treatment Clinical Notes 12/01/2023 Abnormal computed tomography of gallbladder (ICD-10 - R93.2) PLAN OF TREATMENT Pending Test Test Name Order Date US ABD 12/01/2023 Next Appt Details Provider Name:Grant haines Jr, 07/26/2024 10:20:00 AM, [address] [place] [address], [address], [place], [address],
--- OUTSIDE RECORDS SUMMARY | 2024-05-19 11:57 | XMS_ITS ---
Author Organization Rudy Chatterjee DO [facility] Address [address] [place] [phone] Care Team Providers Care Soil Engineer Name Role Phone Rudy Chatterjee Primary Care Provider [phone] REASON FOR VISIT Message MEDICATIONS Medication SIG (Take, Route, Frequency, Duration) Notes Start Date End Date Status Paxlovid (300/100) 20 x 150 MG & 10 x 100MG 3 tablets Orally Twice a day for 5 days 11/26/2023 Active Encounters Encounter Location Date Provider Diagnosis Rudy Chatterjee DO, [address] [phone] 11/26/2023 Rudy Chatterjee PLAN OF TREATMENT Medication Medication Name Sig Start Date Stop Date Notes Paxlovid (300/100) 20 x 150 MG & 10 x 100MG 3 tablets Orally Twice a day for 5 days 11/26/2023
--- OUTSIDE RECORDS SUMMARY | 2024-05-19 11:57 | XMS_ITS ---
Author Organization [facility] Address [address] [place] [address] Care Team Providers Care Italian Lecturer Name Role Phone Sen (RETIRED) Rudy CRUZ Primary Care Provid er Unavailable Lester Christine, Grant Davis REASON FOR VISIT pathology Encounters Encounter Location Date Provider Diagnosis [facility] [address] [place] [address] 09/30/2023 Grant Batista Jr PLAN OF TREATMENT Next Appt Details Provider Name:Grant haines Jr, 07/26/2024 10:20:00 AM, [address], [address], [place], [address],
--- OUTSIDE RECORDS SUMMARY | 2024-05-19 11:57 | XMS_ITS | Patient Health Record ---
Author Organization [facility] Address [address] [place] [address] Care Team Providers Care Booking Manager Name Role Phone Sen (RETIRED) Rudy CRUZ Primary Care Provid er Unavailable Grant Batista Jr Unavailable ALLERGIES Allergen (clinical drug ingredient) Drug/Non Drug Allergy documented on EMR Reaction Allergy Type Onset Date Status Zostavax Unknown Drug Allergy Active acetaminophen / oxycodone Percocet Unknown Drug Allergy Active versed (uncoded) Unknown Allergy Act jose angel RESULTS Component Value Reference Range Notes Pathology Reviewed date:09/30/2023 11:45:03 AM Interpretation: Performing Lab:[facility], [address] [place] [id number] Notes/Report: CT abdomen pelvis w con Reviewed date:12/01/2023 08:06:44 AM Interpretation: Performing Lab: Notes/Report: [address] [address] [address] Scan Report Signed Patient: Lata Coronado MR#: [id number] : 1950 Acct:[id number] Age/Sex: 73 / F ADM Date: 11/24/23 Loc: HO.CT Attending Dr: Rudy Erickson MD Ordering Physician: Rudy Erickson MD Date of Service: 11/24/23 Procedure(s): CT abdomen pelvis w IV con Accession Number(s): [id number] cc: Rudy Chatterjee DO; Rudy Erickson MD [...] in OV> 11/30/23913 DD/ 7 TD/TT: 11/24/2334 Medical Technologist Generalist: GRACIE US abdomen complete Reviewed date:12/09/2023 10:03:01 AM Interpretation: Performing Lab: Notes/Report: [place] [address] Ultrasound Report Signed Patient: Lata Coronado MR#: [id number] : 1950 Acct:[id number] Age/Sex: 73 / F ADM Date: 12/06/23 Loc: HO.US Attending Dr: Grant Batista MD Ordering Physician: Grant Batista MD Date of Service: 12/06/23 Procedure(s): US abdomen complete Accession Number(s): [id number] cc: Grant Batista MD; Rudy Chatterjee DO [...] 12/08/23 1313 DD/ 0850 TD/TT: 12/06/23 0917 Medical Technologist Generalist: REASON FOR REFERRAL No Information MEDICATIONS Medication SIG (Take, Route, Frequency, Duration) Notes Start Date End Date Status Naltrexone HCl (Pain) 1.5 MG as directed Orally Active Aspirin 81 81 MG 1 tablet Orally Once a day for 30 day(s) Active Multi Vitamin/Minerals - as directed Ora lly once a day Active MiraLax (colon prep) 17 GM/SCOOP mixed with Gatorade or Crystal Light Orally begin at 5:00 p.m. the day before the procedure for 1 day 08/12/2023 Active Estrace 0.1 MG/GM as directed Vaginal prn Active Testosterone 1 % as directed Transder mal Once a day Active Lotemax 0.5 % 1 drop into the lowe r eyelid of affected eye Ophthalmic Four times a day for 14 day(s) Active IMMUNIZATIONS Vaccine Route Administration Date Status Comme nts Influenza Unknown 11/20/2018 Administered Influenza Unknown 01/12/2023 Administered Influenza Unknown 08/05/2018 Refused SOCIAL HISTORY Sex Assigned At : Social History Observation Description Sex Assigned At Unknown PROBLEMS Problem Type ICD Code Onset Dates Problem Status W/U Status Risk SNOMED Code Notes Problem Diverticulitis of large intestine with perforation and abscess without bleeding (K57.20) Active confirmed 0193559 Problem Gastroesophageal reflux disease without esophagitis (K21.9) Active confirmed 569494525 Problem Abdominal pain, left lower quadrant (R10.32) Active confirmed 077782576 Problem Dysphagia, unspecified type (R13.10) Active confirmed 71458293 Problem Pelvic pain (R10.2) Active confirmed 30 442955 Problem RLQ abdominal pain (R10.31) Active confirmed 150757515 Problem Abnormal computed tomography of gallbladder (R93.2) Active confirmed 8338123301782548 6 VITAL SIGNS Temperature 97.3 degrees Fahrenheit 08/12/2023 Blood pressure diastolic 00 mm Hg 08/12/2023 Height 67.75 in 08/12/2023 Blood pressure systolic 000 mm Hg 08/12/2023 Weight 166 lbs 08/12/2023 BMI 25.42 kg/m2 08/12/2023 Encounters Encounter Location Date Provider Diagnosis [facility] [address] [address] [place], [place] [phone] 09/28/2023 Grant Batista Jr Abdominal pain, RLQ R10.31 [facility] [address] [place] [phone] 08/12/2023 Grant Batista Jr RLQ abdominal pain R10.31 and Gastroesophageal reflux disease without esophagitis K21.9 [facility] [address] [place] [phone] 08/04/2023 Grant Batista Jr [facility] [address] [place] [phone] 09/21/2023 Grant Batista Jr [facility] [address] [place] [phone] 09/29/2023 Grant Batista Jr RLQ abdominal pain R10.31 [facility] [address] [place] [phone] 09/30/2023 Grant Batista Jr [facility] [address] [place] [phone] 12/01/2023 Grant Batista Jr Abnormal computed tomography of gallbladder R93.2 [facility] [address] [place] [phone] 12/09/2023 Grant Batista Jr ASSESSMENTS Encounter Date Diagnosis Assessment Notes Treatment Notes Treatment Clinical Notes 09/28/2023 Abdominal pain, RLQ (ICD-10 - R10.31) 08/12/2023 Gastroesophageal reflux disease without esophagitis (ICD-10 - K21.9) 08/12/2023 RLQ abdominal pain (ICD-10 - R10.31) Colonoscopy material was printed 09/29/2023 RLQ abdominal pain (ICD-10 - R10.31) 12/01/2023 Abnormal computed tomography of gallbladder (ICD-10 - R93.2) PLAN OF TREATMENT Pending Test Test Name Order Date BUN 09/29/2023 CREATININE 09/29/2023 LIVER PROFILE 09/29/2023 LIPASE 09/29/2023 CBC w/o DIFF 09/29/2023 CT ABD & PELVIS WITH IV CONT ONLY 2023 XR GI SERIES 08/29/2014 US ABD 12/01/2023 US PELVIS 08/05/2017 Future Test Test Name Order Date COLONOSCOPY 12/18/2015 UPPER GI ENDOSCOPY 03/10/2018 COLONOSCOPY 08/12/2023 Next Appt Details Provider Name:Grant wallaceyair Christine, 07/26/2024 10:20:00 AM, [address], [address], [place], [address], Insurance Providers Payer Name Payer Address Payer Phone Subscriber Number Group Number Insured Name Patient Relationship to Insured Coverage Start Date Coverage End Date MEDICARE OF [place] [address] [place] [address] [phone] [id number] LATA CORONADO Self - patient is the insured [employer] ATT[employer] CLAIMS [address] [place] [address] [id number] LATA CORONADO Self - patient is the insured MEDICAL (GENERAL) HISTORY Medical History History ICD Code Colonoscopy 01/04, lymphoid polyp, ten-y ear followup diverticulitis, July 2015 Manuel proced ure reactive airway disease gastroesophageal reflux dise ase, EGD 04/09, no H. pylori, slight hiatal hernia compression fracture seasonal allergies cataract surgery Osteoarthritis Hyperlipidemia Surgical History Surgery Date(Month/Year) section x1 for breech twi ns 1985 acute perforated sigmoid div erticulitis with large abscess,intra-abdominal sepsis , peritonitis-Dr. Taylor 08/08/2015 Laparoscopic take-down of colostomy -Dr. Taylor 01/16/2016 Reversal loop ileostomy-Dr. Taylor 03/2016 cataracts
--- OUTSIDE RECORDS SUMMARY | 2024-05-19 11:58 | XMS_ITS ---
Author Organization Rudy Chatterjee DO, [facility] Address [address] [place] [phone] Care Team Providers Care Field Sales Executive Name Role Phone Rudy Chatterjee Primary Care Provider REASON FOR VISIT Message Encounters Encounter Location Date Provider Diagnosis Rudy Chatterjee DO, FACP [address] [place] [phone] 03/08/2024 Rudy Chatterjee PLAN OF TREATMENT No Information
== END 2024-05-19 11:21 | disposition home or self-care (01) ==
PROVIDERS: PCP Internal Medicine; Visit Provider Physical Medicine & Rehabilitation
DX: M53.3 Sacrococcygeal disorders, not elsewhere classified (principal); M54.16 Radiculopathy, lumbar region; M17.11 Unilateral primary osteoarthritis, right knee; M25.571 Pain in right ankle and joints of right foot
CPT/HCPCS: 99204

== ENCOUNTER 2024-05-19 10:29 | Outpatient (REF) | payer MEDICARE, SELFPAY ==
--- NOTE | ~2024-05-19 | XR_ITS ---
.EXAMINATION: XR ANKLE, RIGHT CLINICAL INFORMATION: M17.11 - Unilateral primary osteoarthritis, right knee COMPARISON: None available. TECHNIQUE: AP, lateral, and mortise views of the right ankle. FINDINGS: No acute cortical disruption or normal alignment. No lytic or blastic lesions. No joint effusion. No subcutaneous emphysema. XR/XR ankle RT 2V IMPRESSION: No acute fracture or dislocation. Negative exam. Electronically signed by: Andrea Boone MD 05/22/2024 01:33 PM EST
--- NOTE | ~2024-05-19 | XR_ITS ---
.EXAMINATION: XR KNEE, RIGHT CLINICAL INFORMATION: M17.11 - Unilateral primary osteoarthritis, right knee COMPARISON: May 16, 2021. TECHNIQUE: Four views of the right knee. FINDINGS: Degenerative space narrowing involving patellofemoral and tibiofemoral joints. Marginal osteophyte formation lateral tibial plateau and patella. No suprapatellar bursa joint effusion. No lytic or blastic lesions. XR/XR knee RT 3V IMPRESSION: Tricompartment osteoarthrosis, moderate to severe. Electronically signed by: Andrea Boone MD 05/22/2024 01:31 PM [facility]
== END 2024-05-19 10:30 | disposition home or self-care (01) ==
LOC: HO.HOSX 10:29
PROVIDERS: PCP Internal Medicine; Visit Provider Physical Medicine & Rehabilitation
DX: M17.11 Unilateral primary osteoarthritis, right knee (principal); M25.571 Pain in right ankle and joints of right foot; G89.29 Other chronic pain; M53.3 Sacrococcygeal disorders, not elsewhere classified; M54.16 Radiculopathy, lumbar region
CPT/HCPCS: 73562; 73600; 99202

== ENCOUNTER → 2024-05-19 11:08 | Outpatient (BNV) | payer MEDICARE, SELFPAY | PROVIDERS: PCP Internal Medicine; Visit Provider Radiology Diagnostic Radiology | DX: M17.11 Unilateral primary osteoarthritis, right knee (principal); M25.571 Pain in right ankle and joints of right foot | CPT/HCPCS: 73562; 73600 ==

== ENCOUNTER 2024-05-30 07:05 | Outpatient (REF) | payer MEDICARE, SELFPAY ==
--- NOTE | ~2024-05-30 | MR_ITS ---
EXAMINATION: MR LUMBAR SPINE WITHOUT CONTRAST CLINICAL INFORMATION: Right L5-S1 disc herniation. COMPARISON: None available. TECHNIQUE: MRI of the lumbar spine was obtained using routine sequences without contrast. FINDINGS: Last rib-bearing vertebra labeled T12. No bone marrow STIR signal abnormality. Grade 1 anterolisthesis L4-5. Grade 1 retrolisthesis, L1 to. Disc desiccation at multiple levels from T11-12 to L5-S1. Focal hyperintense T2 signal in the posterior left foraminal intervertebral disc L4-5 likely focal annular fissure. Conus medullaris ends at pedicle of L1 with normal signal. T12-L1: No disc herniation. No neuroforamina stenosis. L1-2: No disc herniation. No neuroforamina stenosis. L2-3: Broad-based disc bulging. Facet joint and ligamentum flavum hypertrophy. Reduced AP diameter of the thecal sac and the neural foramina. L3-4: Broad-based disc bulging. Facet joint and ligamentum flavum hypertrophy. Reduced AP diameter of the thecal sac and dorsal deformity secondary to a prominent right facet joint. Bilateral neuroforamina narrowing. L4-5: Broad-based disc bulging. Facet joint hypertrophy. No central spinal canal or neuroforamina stenosis. L5-S1: Broad-based disc bulging. No central spinal canal stenosis. Right facet joint hypertrophy. Right neuroforamina and to a lesser extent left neuroforamina narrowing. No prevertebral compartment hematoma, mass or fluid collection. Cystic lesions in the parapelvic kidneys. 1 cm intraluminal hypointense T2 lesion, gallbladder. MR/MR lumbar spine wo con IMPRESSION: Multilevel mild to moderate lumbar spondylosis more conspicuous at L3-4 and to a lesser extent L4-5 and L5-S1 levels likely encroaching the neural elements of the thecal sac and the exiting nerve roots at L3-4 and L5-S1. Cholelithiasis. Parapelvic renal cysts, bilaterally. Electronically signed by: Andrea Boone MD 05/30/2024 12:26 PM EDT
== END 2024-05-30 07:06 | disposition home or self-care (01) ==
LOC: HO.MRI 07:05
PROVIDERS: PCP Internal Medicine; Visit Provider Physical Medicine & Rehabilitation
DX: M54.16 Radiculopathy, lumbar region (principal); M53.3 Sacrococcygeal disorders, not elsewhere classified; G89.29 Other chronic pain
CPT/HCPCS: 72148

== ENCOUNTER → 2024-05-30 07:13 | Outpatient (BNV) | payer MEDICARE, SELFPAY | PROVIDERS: PCP Internal Medicine; Visit Provider Radiology Diagnostic Radiology | DX: M47.816 Spondylosis without myelopathy or radiculopathy, lumbar region (principal); K80.20 Calculus of gallbladder without cholecystitis without obstruction; N28.1 Cyst of kidney, acquired | CPT/HCPCS: 72148 ==

== ENCOUNTER 2024-06-27 08:57 | Outpatient (AMB) | payer MEDICARE, SELFPAY ==
--- NOTE | 2024-06-27 08:59 | A.OFFVIS_ITS ---
Vital Signs 06/27/24 09:07 Height 5 ft 6 in Weight 170 lb BMI 27.4 Intake Visit Reasons: OV - Lumbar spine MRI Review Intake Note: Lata is a 74 year old female who presents today for a MRI review of her lumbar spine. At her last visit we discussed ruling out possible underlying disc herniation or nerve impingement prior to further treatment options such as injections. IMPRESSION: Multilevel mild to moderate lumbar spondylosis more conspicuous at L3-4 and to a lesser extent L4-5 and L5-S1 levels likely encroaching the neural elements of the thecal sac and the exiting nerve roots at L3-4 and L5-S1. Cholelithiasis Allergies zoster vaccine live [From Zostavax (PF)] Allergy (Severe, Verified 06/27/24 09:07) Anaphylaxis midazolam [From VERSED] Allergy (Unknown, Verified 06/27/24 09:07) AMNESIA FOR ONE WEEK acetaminophen [From Percocet] Allergy (Verified 06/27/24 09:07) Nausea and Vomiting oxycodone [From Percocet] Allergy (Verified 06/27/24 09:07) Unknown Medication List - Last Reconciled 06/27/24 by Temitope Jose MD albuterol sulfate 90 mcg/actuation 1 inh inhalation QID PRN amitriptyline mg PO epinephrine 0.3 mg (0.3 mL) IM Q5M PRN loteprednol etabonate 0.5% (Lotemax) drps ophthalmic (eye) nirmatrelvir-ritonavir 300 mg (150 mg x 2)-100 mg (Paxlovid) 0 ea PO HPI Comments Details: Chronic back and hip pain. Saw a specialist who said that it was SI joint, that was 30 years ago. Had injection 1-2 times, 10 years ago at [facility], resolved the pain. No MRI done that she can remember. Since then, constant pain, minor, tolerable. However in the last few months been worse at night. Right side. If she over exerts, she would feel it going to right buttocks, not lower. Right leg does feel weaker, and can trip on that right if not careful, on stairs. History of right knee arthritis. Right ankle/foot sometimes feel that it goes out of place. Having mild numbness on fingers and toes, suspected neuropathy, but EMG normal. Non diabetic, no kidney, thyroid or cancer history. Last PT 3 months, 5 weeks, 2-3 sessions per week. EMG done 2 days ago in [place] with normal results as per patient. Here today to discuss MRI results, x-ray of knee and ankle. [facility] Medical History GERD (gastroesophageal reflux disease) Colostomy in place Surgical History History of reversal of ileostomy History of colostomy reversal Hx of colonoscopy Hx of esophagogastroduodenoscopy History of cataract surgery H/O section Social History Patient Tobacco Use Status: Never used Tobacco Current occupational status: retired Physical Exam Vital Signs: BMI result Body Mass Index 27.4 Indicates most tenderness on right SI joint. Right hip flexion strength 5/5. Rest of extremity strength 5/5. Results Reviewed Results Reviewed: Ordering Physician: Temitope Vizcaino Date of Service: 05/30/24 Procedure(s): MR lumbar spine wo con Accession Number(s): [id number] cc: Temitope Vizcaino; Bashir Barfield MD~ EXAMINATION: MR LUMBAR SPINE WITHOUT CONTRAST CLINICAL INFORMATION: Right L5-S1 disc herniation. COMPARISON: None available. TECHNIQUE: MRI of the lumbar spine was obtained using routine sequences without contrast. FINDINGS: Last rib-bearing vertebra labeled T12. No bone marrow STIR signal abnormality. Grade 1 anterolisthesis L4-5. Grade 1 retrolisthesis, L1 to. Disc desiccation at multiple levels from T11-12 to L5-S1. Focal hyperintense T2 signal in the posterior left foraminal intervertebral disc L4-5 likely focal annular fissure. Conus medullaris ends at pedicle of L1 with normal signal. T12-L1: No disc herniation. No neuroforamina stenosis. L1-2: No disc herniation. No neuroforamina stenosis. L2-3: Broad-based disc bulging. Facet joint and ligamentum flavum hypertrophy. Reduced AP diameter of the thecal sac and the neural foramina. L3-4: Broad-based disc bulging. Facet joint and ligamentum flavum hypertrophy. Reduced AP diameter of the thecal sac and dorsal deformity secondary to a prominent right facet joint. Bilateral neuroforamina narrowing. L4-5: Broad-based disc bulging. Facet joint hypertrophy. No central spinal canal or neuroforamina stenosis. L5-S1: Broad-based disc bulging. No central spinal canal stenosis. Right facet joint hypertrophy. Right neuroforamina and to a lesser extent left neuroforamina narrowing. No prevertebral compartment hematoma, mass or fluid collection. Cystic lesions in the parapelvic kidneys. 1 cm intraluminal hypointense T2 lesion, gallbladder. MR/MR lumbar spine wo con IMPRESSION: Multilevel mild to moderate lumbar spondylosis more conspicuous at L3-4 and to a lesser extent L4-5 and L5-S1 levels likely encroaching the neural elements of the thecal sac and the exiting nerve roots at L3-4 and L5-S1. Cholelithiasis. Parapelvic renal cysts, bilaterally. Electronically signed by: Andrea Boone MD 05/30/2024 12:26 PM EDT RP Ordering Physician: Temitope Vizcaino Date of Service: 05/19/24 Procedure(s): XR knee RT 3V Accession Number(s): [id number] cc: Rudy Chatterjee DO; Temitope Vizcaino~ .EXAMINATION: XR KNEE, RIGHT CLINICAL INFORMATION: M17.11 - Unilateral primary osteoarthritis, right knee COMPARISON: May 16, 2021. TECHNIQUE: Four views of the right knee. FINDINGS: Degenerative space narrowing involving patellofemoral and tibiofemoral joints. Marginal osteophyte formation lateral tibial plateau and patella. No suprapatellar bursa joint effusion. No lytic or blastic lesions. XR/XR knee RT 3V IMPRESSION: Tricompartment osteoarthrosis, moderate to severe. Electronically signed by: Andrea Boone MD 05/22/2024 01:31 PM EST RP Ordering Physician: Temitope Vizcaino Date of Service: 05/19/24 Procedure(s): XR ankle RT 2V Accession Number(s): [id number] cc: Rudy Chatterjee DO; Temitope Vizcaino~ .EXAMINATION: XR ANKLE, RIGHT CLINICAL INFORMATION: M17.11 - Unilateral primary osteoarthritis, right knee COMPARISON: None available. TECHNIQUE: AP, lateral, and mortise views of the right ankle. FINDINGS: No acute cortical disruption or normal alignment. No lytic or blastic lesions. No joint effusion. No subcutaneous emphysema. XR/XR ankle RT 2V IMPRESSION: No acute fracture or dislocation. Negative exam. Electronically signed by: Andrea Boone MD 05/22/2024 01:33 PM EST Assessment & Plan Assessment & Plan (1) Chronic right SI joint pain: Code(s): M53.3 - Sacrococcygeal disorders, not elsewhere classified; G89.29 - Other chronic pain Category: Medical (2) Right knee DJD: Code(s): M17.11 - Unilateral primary osteoarthritis, right knee Category: Medical Qualifiers: Osteoarthritis type: primary Qualified Code(s): M17.11 - Unilateral primary osteoarthritis, right knee (3) Lumbar spondylosis: Code(s): M47.816 - Spondylosis without myelopathy or radiculopathy, lumbar region Category: Medical Plan She was told in the past that her symptoms are from right SI joint. Injection only worked temporarily/partially. Her main complaint is difficulty with right hip flexion, example: tripping when going up the stairs, feeling right hip weaker. On exam today though, strength is normal. So I think that sensation of hip flexion weakness is related to SI joint dysfunction. We talked about positions to avoid to not exacerbate. Showed her some exercises she can do at home. We looked at lumbar MRI films together. I do not see any specific disc herniation or nerve impingement that would explain right-sided symptoms. Again I think, diagnosis is SI joint dysfunction rather than lumbar related. We have not evaluated hip for arthritis. If she does have some arthritis in the hip joint, that can contribute to the hip pain and weakness. Offered to do x- ray today which she defers. Assessment and plan discussed with patient, and patient was agreeable. All questions were answered thoroughly. Total of 45 minutes spent today including chart review, results review, history taking, physical examination, discussion of assessment and plan, and coordination of care. Temitope Jose MD, GAVIN Board Certified, [place] [employer] and Rehabilitation (ABPMR) Board Certified, [place] [employer] Electrodiagnostic Medicine (ABEM) Coding Level of Care Code Est Pt Level 4 (19409) Diagnoses Chronic right SI joint pain M53.3; G89.29 Primary osteoarthritis of right knee M17.11 Osteoarthritis type: primary Lumbar spondylosis M47.816
[2024-06-27 09:07] VITALS: BMI 27.4
--- OUTSIDE RECORDS SUMMARY | 2024-06-27 09:45 | XMS_ITS ---
Author Organization [facility] Address [address] [place] [phone] Care Team Providers Care Airplane Patroller Name Role Phone Sen (RETIRED) Rudy CRUZ Primary Care Provid er Unavailable Lester Christine, Grant Unavailable REASON FOR VISIT CT scan Problems Problem Type SNOMED Code ICD Code Onset Dates Problem Status W/U Status Risk Notes Problem [id number] Abnormal computed tomography of gallbladder (R93.2) Active confirmed Encounters Encounter Location Date Provider Diagnosis [facility] [address] [facility] [place] [address] 12/01/2023 Grant Batista Jr Abnormal computed tomography of gallbladder R93.2 Assessments Encounter Date Diagnosis (ICD Code) Assessment Notes Treatment Notes Treatment Clinical Notes Section Notes 12/01/2023 Abnormal computed tomography of gallbladder (ICD-10 - R93.2) Plan Of Treatment Pending Test Test Name Order Date US ABD 12/01/2023 Next Appt Details Provider Name:Grant haines Jr, 07/26/2024 10:20:00 AM, [address] [place] [address], [address], [place], [address], Progress Notes * PARISH CORONADO EDOB:05/1950 (73 yo F)Acc No.[id number]:12/01/2023 Patient:?PARISH CORONADO :1950???Age:73 Y???Sex:Female Address:[address] [place] [address], [place] [address] Subjective: * Chief Complaints: * ???CT scan * Medical History:? * Surgical History:? * Hospitalization/Major Diagno stic Procedure:? * Medications:? Objective: Assessment: * Assessment: 1.?Abnormal computed tomogra phy of gallbladder - R93.2 (Primary)? Plan: * Treatment: * Procedure Codes:? * true * Date:? Generated for Rochelle mireles/Carole/Valeriaitting on:?06/27/2024 09:45 AM EDT
--- OUTSIDE RECORDS SUMMARY | 2024-06-27 09:45 | XMS_ITS | Patient Health Record ---
Author Organization [facility] Address [address] [place] [address] Care Team Providers Care Flooring Sales Manager Name Role Phone Sen (RETIRED) Rudy CRUZ Primary Care Provid er Unavailable Grant Batista Jr Unavailable Allergies Allergen (clinical drug ingredient) Drug/Non Drug Allergy documented on EMR Reaction Allergy Type Onset Date Status Zostavax Unknown Drug Allergy Active acetaminophen / oxycodone Percocet Unknown Drug Allergy Active versed (uncoded) Unknown Allergy Act jose angel Results Component Value Reference Range Notes Pathology Reviewed date:09/30/2023 11:45:03 AM Interpretation: Performing Lab:[facility], [address] [place] [phone] Notes/Report: Name: Parish Coronado Age/Sex: 73/F : 1950 Unit#: [id number] Attend Dr: Grant Batista MD Re09/28/23 Status : [facility] Location: [facility] Disch: SPEC : [id number] RECD : 09/28/23 STATUS: JOSETTE ESPINOZA NUM: [id number] OSVALDO: 09/28/[address] [facility] [address]: Grant Batista MD ENTERED: 09/28/23 SP TYPE: Surgical OTHR DR: Rudy Chatterjee DO ORDERED: HE Stain/9, Gross Micro L4/3 Diagnosis A. Terminal ileum, b iopsy: Ileal mucosa with reactive lymphoid follicles consistent with Peyer's patches and no specific change. B. Colon, cecum, bio psy: Colonic mucosa with no specific change. C. Colon, right, bio psy: Colonic mucosa with no specific change. Clinical History Pre-Op Dx: Right low er quadrant pain Post-Op Dx: Normal c olonoscopy exam Microscopic Description Microscopic sections reviewed. Material Received A. Bx's terminal ileum B. Cecum bx's C. Right colon bx's Gross Description A. Received in forma maximino are 2 rios 1 and 2 mm soft tissue fragments, totally submitted in cassette A1. B. Received in forma maximino are 2 rios 1 and 4 mm soft tissue fragments, totally submitted in cassette B1. C. Received in forma maximino are 2 rios 3 and 8 mm soft tissue fragments, totally submitted in cassette C1. (KR) Copies To: Grant Batista MD [facility] [address] [place] [address] Rudy Chatterjee DO [address] [place] [address] [phone] CONTINUED ON NEXT PAGE Name: Parish Coronado Age/Sex: 73/F : 1950 Unit#: [id number] Attend Dr: Grant Batista MD Re09/28/23 Status : [facility] Location: [facility] Disch: SPEC : [id number] RECD : 09/28/23 STATUS: JOSETTE ESPINOZA NUM: [id number] OSVALDO: 09/28/[address] [facility] [address]: Grant Batista MD ENTERED: 09/28/23-11 17 SP TYPE: Surgical OTHR DR: Rudy Chatterjee DO ORDERED: ABDIRASHID Sifuentes/Elvin Raymond L4/3 Signed (maddy conway on file) Rhonda Ayala 09/30/[address] abdomen pelvis w con Reviewed date:12/01/2023 08:06:44 AM Interpretation: Performing Lab: Notes/Report: [address] [address] [address] Scan Report Signed Patient: Parish Coronado MR#: [id number] : 1950 Acct:[id number] Age/Sex: 73 / F ADM Date: 11/24/23 Loc: HO.CT Attending Dr: Rudy Erickson MD Ordering Physician: Rudy Erickson MD Date of Service: 11/24/23 Procedure(s): CT abdomen pelvis w IV con Accession Number(s): [id number] cc: Rudy Chatterjee DO; Rudy Erickson MD [...] MD in OV> 11/30/23913 DD/ 7 TD/TT: 11/24/23833 Media Consultant Outside Sales: GRACIE [address] [address] [address] Scan Report Signed Patient: Parish Wray MR#: [id number] : 1950 Acct:[id number] Age/Sex: 73 / F ADM Date: 11/24/23 Loc: HO.CT Attending Dr: Rudy Erickson MD Ordering Physician: Rudy Erickson MD Date of Service: 11/24/23 Procedure(s): CT abd omen pelvis w IV con Accession Number(s): [id number] cc: Rudy Chatterjee; Rudy Erickson MD EXAMINATION: CT ABDOMEN AND PELVI S WITH CONTRAST CLINICAL INFORMATION: Right lower quadrant abdominal pain. COMPARISON: None available. TECHNIQUE: Multidetector volume tric images were obtained from the superior aspect of the liver through the pubic symphysis following administration 85 mL of Omnipaque 350 int ravenous contrast. Sagittal and coronal reformatted images were obtained on the technologist's workstation. Oral contrast: No This CT examination was performed using dose optimization techniques as appropriate, various ly including the following: *Automated exposure control *Adjustment of mA an d/or kV according to patient size (this includes techniques or standa rdized protocols for targeted exams where dose is matched to indicatio n/reason for exam; i.e. extremities or head) *Use of iterative re construction technique DLP: 374 mGy-cm FINDINGS: LUNG BASES: The visu alized lung bases are unremarkable. LIVER, GALLBLADDER, AND BILIARY TREE: The liver is normal in size, shape, and attenuati on. No focal hepatic lesion or biliary ductal dilatation is presen t. No gallstones are seen. There is questionable wall thickening conor g the gallbladder fundus. No pericholecystic fluid. PANCREAS: Unremarkable. SPLEEN: Unremarkable. ADRENAL GLANDS: Unremarkable. KIDNEYS AND URETERS: The kidneys are normal in size, shape, and attenuation. No hydr onephrosis, hydroureter, or calculi seen. No perinephric stranding. BLADDER: Unremarkable. GASTROINTESTINAL TRA CT: The stomach is unremarkable. Normal caliber of the small bowel. No obstruction. Distal colonic anastomosis noted. No colonic wall thicken ing or inflammation. Normal appendix. ABDOMINAL WALL: No s ignificant hernia is appreciated. LYMPH NODES: Normal. VASCULAR: Normal keli iber aorta with mild atherosclerotic calcification. PELVIC VISCERA: Unremarkable. OSSEOUS STRUCTURES: No acute or suspicious osseous abnormality. C T/CT abdomen pelvis w IV con IMPRESSION: 1. No acute findings in the abdomen or pelvis. No inflammatory changes. Normal appendix. 2. Questionable wall thickening along the gallbladder fundus. No pericholecystic flui d. Consider ultrasound evaluation. Fleischner guideline s were followed. Electronically bhavik d by: Solitario Oviedo MD 11/30/2023 09:14 AM EDT Dictated By: Solitario Sánchez MD Signed By: <Electron ically signed by Solitario Oviedo MD in OV> 11/30/23913 DD/ 7 TD/TT: 11/24/23 0834 Media Consultant Outside Sales: GRACIE US abdomen complete Reviewed date:12/09/2023 10:03:01 AM Interpretation: Performing Lab: Notes/Report: [address] [address] Ultrasound Report Signed Patient: Parish Coronado MR#: [id number] : 1950 Acct:[id number] Age/Sex: 73 / F ADM Date: 12/06/23 Loc: HO.US Attending Dr: Grant Batista MD Ordering Physician: Grant Batista MD Date of Service: 12/06/23 Procedure(s): US abdomen complete Accession Number(s): [id number] cc: Grant Batista MD; Rudy Chatterjee DO [...] Rachel Andino MD 12/08/2023 01:13 PM EDT Dictated By: Rachel Andino MD Signed By: <Electronically signed by Rachel Andino MD in OV> 12/08/23 1313 DD/ 0850 TD/TT: 12/06/23 0917 Media Consultant Outside Sales: [address] [address] Ultrasound Report Signed Patient: Parish Wray MR#: [id number] : 1950 Acct:[id number] Age/Sex: 73 / F ADM Date: 12/06/23 Loc: HO.US Attending Dr: Gorge Batista MD Ordering Physician: Grant Batista MD Date of Service: 12/06/23 Procedure(s): US abd omen complete Accession Number(s): [id number] cc: Grant Batista MD; Rudy Chatterjee DO EXAMINATION: US ABDOMEN COMPLETE CLINICAL INFORMATION: Abnormal findings in gallbladder. COMPARISON: CT abdomen and pelvi s 11/24/2023. TECHNIQUE: Real-time imaging of the abdominal viscera. Limited visualization due to bowel gas. FINDINGS: PANCREAS: Limited vi sualization of pancreatic tail and head. Imaged portion of pancreati c body is unremarkable. ABDOMINAL AORTA: Ath erosclerosis most notable in the mid to distal abdominal aorta. INFERIOR VENA CAVA: Visualized portions are normal. LIVER: Mildly hetero geneous hepatic echotexture. Limited visualization. GALLBLADDER: Choleli thiasis with 1.6 cm gallstone. Gallbladder wall thickness of 2 mm; h owever, please note that visualization is limited in the region of the questionable wall thickening along the gallbladder fundus as noted on r eport for CT abdomen and pelvis of 11/24/2023. COMMON BILE DUCT: No rmal in caliber measuring 0.5 cm in diameter. RIGHT KIDNEY: No hyd ronephrosis. No renal calculi. Limited visualization. The k idney measures 10.0 cm in maximum dimension. LEFT KIDNEY: Mild le ft caliectasis. No obstructing renal calculi. Limited visualizatio n. The kidney measures 10.2 cm in maximum dimension. SPLEEN: Limited visu alization. The spleen measures 6.7 cm in maximum dimension. FREE FLUID: None. U S/US abdomen complete IMPRESSION: 1. Cholelithiasis wi th 1.6 cm gallstone. Gallbladder wall thickness of 2 mm; however, pleas e note that visualization is limited in the region of the questionable wall thickening along the gallbladder fundus as noted on report for CT abdomen and pelvis of 11/24/2023. 2. Mild left caliect asis. No obstructing renal calculi. 3. Atherosclerosis m ost notable in the mid to distal abdominal aorta. Electronically bhavik d by: Rachel Andino MD 12/08/2023 01:13 PM EDT Dictated By: Rachel Andino MD Signed By: <Adrian plasencia signed by Rachel Andino MD in OV> 12/08/23 1313 DD/ 0850 TD/TT: 12/06/23 0917 Media Consultant Outside Sales: Reason For Referral No Information Medications Medication SIG (Take, Route, Frequency, Duration) Notes [...] times a day for 14 day(s) Active Immunizations Vaccine Route Administration Date Status Comme nts Influenza Unknown 11/20/2018 Administered Influenza Unknown 01/12/2023 Administered Influenza Unknown 08/05/2018 Refused Problems Problem Type SNOMED Code ICD Code Onset Dates Problem Status W/U Status Risk Notes Problem 7324820 Diverticulitis o f large intestine with perforation and abscess without bleeding (K57.20) Active confirmed Problem 820180628 Gastroesophageal reflux disease without esophagitis (K21.9) Active confirmed Problem 726808331 Abdominal pain, left lower quadrant (R10.32) Active confirmed Problem 39234770 Dysphagia, unspecified type (R13.10) Active confirmed Problem 47316455 Pelvic pain (R10.2) Active confirmed Problem 913231329 RLQ abdominal pa in (R10.31) Active confirmed Problem 76955303688611809 Abnormal compu tk tomography of gallbladder (R93.2) Active confirmed Vital Signs Temperature 97.3 degrees Fahrenheit 08/12/2023 Blood pressure diastolic 00 mm Hg 08/12/2023 Height 67.75 in 08/12/2023 Blood pressure systolic 000 mm Hg 08/12/2023 Weight 166 lbs 08/12/2023 BMI 25.42 kg/m2 08/12/2023 Encounters Encounter Location Date Provider Diagnosis [facility] [address] [place] [id number] 09/28/2023 Grant Batista Jr Abdominal pain, RLQ R10.31 [facility] [address] [place] [phone] 08/12/2023 Grant Batista Jr RLQ abdominal pain R10.31 and Gastroesophageal reflux disease without esophagitis K21.9 [facility] [address] [place] [phone] 08/04/2023 Grant Batista Jr [facility] [address] [place] [phone] 09/21/2023 Grant Batista Jr [facility] [address] [place] [phone] 09/29/2023 Grant Batista Jr RLQ abdominal pain R10.31 [facility] [address] [place] [phone] 09/30/2023 Grant Batista Jr [facility] [address] [place] [phone] 12/01/2023 Grant Batista Jr Abnormal computed tomography of gallbladder R93.2 [facility] [address] [place] [phone] 12/09/2023 Grant Batista Jr Assessments Encounter Date Diagnosis (ICD Code) Assessment Notes Treatment Notes Treatment Clinical Notes Section Notes 09/28/2023 Abdominal pain, RLQ (ICD-10 - R10.31) 08/12/2023 Gastroesophageal reflux disease without esophagitis (ICD-10 - K21.9) We discussed the causes of right lower quadrant pain including diverticular disease, CIRCULATION MANAGER causes, functional disease such as irritable bowel syndrome, and musculoskeletal causes. Her findings on examination today were very reassuring, and we recommended pursuing colonoscopy for further evaluation. She is aware risks and benefits and agrees to proceed. Advised to stop aspirin one week before the procedure. Reflux symptoms are doing well with diet control. We discussed diet, lifestyle modifications, and weight management regarding the treatment of reflux. 08/12/2023 RLQ abdominal pain (ICD-10 - R10.31) Colonoscopy material was printed We discussed the causes of right lower quadrant pain including diverticular disease, CIRCULATION MANAGER causes, functional disease such as irritable bowel syndrome, and musculoskeletal causes. Her findings on examination today were very reassuring, and we recommended pursuing colonoscopy for further evaluation. She is aware risks and benefits and agrees to proceed. Advised to stop aspirin one week before the procedure. Reflux symptoms are doing well with diet control. We discussed diet, lifestyle modifications, and weight management regarding the treatment of reflux. 09/29/2023 RLQ abdominal pain (ICD-10 - R10.31) 12/01/2023 Abnormal computed tomography of gallbladder (ICD-10 - R93.2) Plan Of Treatment Pending Test Test Name Order Date BUN 09/29/2023 CREATININE 09/29/2023 LIVER PROFILE 09/29/2023 LIPASE 09/29/2023 CBC w/o DIFF 09/29/2023 CT ABD & PELVIS WITH IV CONT ONLY 2023 XR GI SERIES 08/29/2014 US ABD 12/01/2023 US PELVIS 08/05/2017 Future Test Test Name Order Date COLONOSCOPY 12/18/2015 UPPER GI ENDOSCOPY 03/10/2018 COLONOSCOPY 08/12/2023 Next Appt Details Provider Name:Grant haines , 07/26/2024 10:20:00 AM, [address] [facility], [address], [place], [address], Insurance Providers Payer Name Payer Address Payer Phone Subscriber Number Group Number Insured Name Patient Relationship to Insured Coverage Start Date Coverage End Date MEDICARE OF [place] [address] [place] [address] [id number] PARISH CORONADO Self - patient is the insured [employer] ATT[employer] CLAIMS [address] [place] [phone] [id number] PARISH CORONADO Self - patient is the insured Medical (General) History Medical History History ICD Code Colonoscopy 01/04, lymphoid polyp, ten-y ear followup diverticulitis, July 2015 Manuel proced ure reactive airway disease gastroesophageal reflux dise ase, EGD 04/09, no H. pylori, slight hiatal hernia compression fracture seasonal allergies cataract surgery Osteoarthritis Hyperlipidemia Surgical History Surgery Date(Month/Year) section x1 for breech twi ns 1984 acute perforated sigmoid div erticulitis with large abscess,intra-abdominal sepsis , peritonitis-Dr. Taylor 08/08/2015 Laparoscopic take-down of colostomy -Dr. Taylor 01/16/2016 Reversal loop ileostomy-Dr. Taylor 03/2016 cataracts
--- OUTSIDE RECORDS SUMMARY | 2024-06-27 09:45 | XMS_ITS ---
Author Organization [facility] Address [address] [place] [address] Care Team Providers Care Manager Equity Name Role Phone Sen (RETIRED) Rudy CRUZ Primary Care Provid er Unavailable Lester Christine, Grant Davis REASON FOR VISIT ultrasound Encounters Encounter Location Date Provider Diagnosis [facility] [address] [place] [address] 12/09/2023 Grant Batista Jr Plan Of Treatment Next Appt Details Provider Name:Grant haines Jr, 07/26/2024 10:20:00 AM, [address], [address], [place], [address], Progress Notes * PARISH CORONADO EDOB:05/1950 (73 yo F)Acc No.[id number]:12/09/2023 Patient:?PARISH CORONADO :1950???Age:73 Y???Sex:Female Address:[address], [place] [address] * true * Date:? Generated for Printi aline/Carole/eTransmitting on:?06/27/2024 09:45 AM EDT
--- OUTSIDE RECORDS SUMMARY | 2024-06-27 09:45 | XMS_ITS ---
Author Organization [facility] Address [address] [place] [address] Care Team Providers Care Ciaio Counter Molder Name Role Phone Sen (RETIRED) Rudy CRUZ Primary Care Provid er Unavailable Lester Christine, Grant Davis REASON FOR VISIT pathology Encounters Encounter Location Date Provider Diagnosis [facility] [address] [place] [address] 09/30/2023 Grant Batista Jr Plan Of Treatment Next Appt Details Provider Name:Grant haines Jr, 07/26/2024 10:20:00 AM, [address], [address], [place], [address], Progress Notes * PARISH CORONADO EDOB:05/1950 (73 yo F)Acc No.[id number]:09/30/2023 Patient:?PARISH CORONADO :1950???Age:73 Y???Sex:Female Address:[address], [place] [address] * true * Date:? Generated for Printi aline/Carole/eTransmitting on:?06/27/2024 09:45 AM EDT
== END 2024-06-27 09:50 | disposition home or self-care (01) ==
LOC: HO.HOS 08:57
PROVIDERS: PCP Internal Medicine; Visit Provider Physical Medicine & Rehabilitation
DX: M53.3 Sacrococcygeal disorders, not elsewhere classified (principal); G89.29 Other chronic pain; M17.11 Unilateral primary osteoarthritis, right knee; M47.816 Spondylosis without myelopathy or radiculopathy, lumbar region
CPT/HCPCS: 99214

== ENCOUNTER → 2024-06-27 08:57 | Outpatient (BNVA) | payer MEDICARE, SELFPAY | PROVIDERS: PCP Internal Medicine; Visit Provider Physical Medicine & Rehabilitation | DX: M17.11 Unilateral primary osteoarthritis, right knee (principal); M53.3 Sacrococcygeal disorders, not elsewhere classified; M47.816 Spondylosis without myelopathy or radiculopathy, lumbar region; G89.29 Other chronic pain | CPT/HCPCS: 99212 ==

== ENCOUNTER 2025-01-16 09:54 | Outpatient (AMB) | payer MEDICARE, SELFPAY ==
--- NOTE | 2025-01-16 09:55 | A.OFFPC_ITS ---
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 Accompanied by: Self / Same As Patient Allergies zoster vaccine live (From Zostavax (PF)) Allergy (Severe, Verified 01/16/25 09:56) Anaphylaxis midazolam (From VERSED) Allergy (Unknown, Verified 01/16/25 09:56) AMNESIA FOR ONE WEEK acetaminophen (From Percocet) Allergy (Verified 01/16/25 09:56) Nausea and Vomiting oxycodone (From Percocet) Allergy (Verified 01/16/25 09:56) Unknown Tobacco use date assessed: 01/16/25 Fall risk assessment: No Falls in past year Last assessed Fall Risk: 01/16/25 Dental Screening Dental Screen Date: 01/16/25 Did you have a dental visit in the last 12 months?: Yes Did you have a dental problem in the last 6 months where you did not have access to dental care?: No Was dental information given to patient?: Patient has dentist [facility] Medical History GERD (gastroesophageal reflux disease) Colostomy in place Surgical History History of reversal of ileostomy History of colostomy reversal Hx of colonoscopy (~09/28/23) Hx of esophagogastroduodenoscopy History of cataract surgery H/O section Social History (Updated 01/16/25 @ 10:08 by SHARON Avelar) Housing: House Alcohol intake: current Alcohol intake frequency: holidays/special occasions only Patient Tobacco Use Status: Former Tobacco user service: No Current occupational status: retired Cognitive needs: No Hearing needs: No Vision needs: Yes (reading glasses) Questionnaire PHQ-9 Over the last 2 weeks, how often have you been bothered by any of the following problems? 1. Little interest or pleasure in doing things: not at all 2. Feeling down, depressed, or hopeless: several days 3. Trouble falling or staying asleep, or sleeping too much: not at all 4. Feeling tired or having little energy: several days 5. Poor appetite or overeating: not at all 6. Feeling bad about yourself - or that you are a failure or have let yourself or your family down: several days 7. Trouble concentrating on things, such as reading the newspaper or watching television: more than half the days 8. Moving or speaking so slowly that other people could have noticed. Or the opposite - being so fidgety or restless that you have been moving around a lot more than usual: not at all 9. Thoughts that you would be better off or of hurting yourself in some way: not at all Total score: 5 Source: Developed by Drs. Rudy Li, Nicole Benjamin, Andrea Turner and colleagues, with an educational praveena from [email or web address]. Thrive Questionnaire Date Thrive assessed: 01/16/25 I am a: Patient What is your living situation today?: I have a steady place to live Within the past 12 months, did the food you bought not last and you didn't have the money to get more?: Never true Within the past 12 months, did you worry whether your food would run out before you got money to buy more?: Never true Do you have trouble paying for medicines?: No Do you have trouble getting transportation to medical appointments?: No Do you have trouble paying your heating and electricity bill?: No Do you have trouble taking care of your child, family member or friend?: No Do you have trouble with day-to-day activities such as bathing, preparing meals, shopping, managing finances, etc.?: No Are you currently unemployed and looking for a job?: No Are you interested in more education?: No Please select the resources that you would like help with: None THRIVE Score: 0 AUDIT C Alcohol Use Questionnaire (AUDIT-C) 1. How often do you have a drink containing alcohol?: 2-4 times a month 2. How many drinks containing alcohol do you have on a typical day when you are drinking?: 1 or 2 3. How often do you have six or more drinks on one occasion?: Never Total Score: 2 GAGANDEEP-7 AMB Questionnaire GAGANDEEP-7 Date GAGANDEEP - 7 assessed: 01/16/25 Feeling nervous, anxious, or on edge: 1 = Several days Not being able to stop or control worryin = Not at all Worrying too much about different things: 0 = Not at all Trouble relaxin = Nearly every day Being so restless that it is hard to sit still: 1 = Several days Becoming easily annoyed or irritable: 2 = More than half the days Feeling afraid as if something awful might happen: 0 = Not at all Total GAGANDEEP-7 score (0-4 normal; 5-9 mild; 10-14 moderate; 15-21 severe): 7 Source: Developed by Drs. Rudy Li, Nicole Benjamin, Andrea Turner and colleagues, with an educational praveena from [email or web address]. Physical exam (Primary Care) Vital Signs: Last Vital Signs Temp 97.8 F 01/16/25 10:02 Pulse 80 01/16/25 10:02 Resp 14 01/16/25 10:02 BP 135/76 01/16/25 10:02 Pulse Ox 98 01/16/25 10:02 Oxygen Delivery Method Room Air 01/16/25 10:02 BMI result Body Mass Index 25.5 Tobacco/Smoking Status: Tobacco use Status Tobacco use date assessed 01/16/25 01/16/25 09:57 Patient Tobacco Use Status Former Tobacco user 01/16/25 10:10 PHQ-9: PHQ-9 Score PHQ-9: Total score 5 01/16/25 10:10 Thrive Assessment: Date of Thrive Assessment Date Thrive assessed 01/16/25 01/16/25 09:57 Office Procedures Flu Questionnaire Does the patient have a severe egg allergy?: No Does the patient have severe life threatening allergies?: No Does the patient have a fever or illness today?: No Has the patient ever had Guillain-[place] Syndrome?: No Has the patient ever had any past reaction to a flu shot?: No Immunizations Fluarix [id number] (PF) 45 mcg (15 mcg x 3)/0.5 mL IM syringe Performing Provider: Bashir Barfield MD [facility] [place] [facility] Documented (not given) by: SHARON Avelar on 01/16/25 10:11 Reason Not Given: Received Previously Coding Level of Care Code Est Pt Level 4 (60457) Complex EM visit Add On G2211 Diagnoses Hyperlipidemia E78.5 Assessment & Plan Assessment & Plan (1) Hyperlipidemia: Code(s): E78.5 - Hyperlipidemia, unspecified Category: Medical Plan: History of Present Illness - The patient is a 74-year-old female presenting with ear pain, photosensitivity post-cataract surgery, and memory issues. - Reports intermittent ear pain relieved temporarily by swimmer's solution, localized to one ear, resembling an ear infection. - Post-cataract surgery, she experiences painful light sensitivity in both eyes, managed by an credit balance specialist with NSAIDs. - Memory issues include difficulty recalling details, possibly age-related, and loss of taste [id number], now returned. - History of lichen sclerosus managed by a camp counselor and past diverticulitis with rupture requiring colostomy. - Preventative care includes RSV vaccination, recent mammogram, and colonoscopy without anesthesia due to anesthesia fear. Social History - The patient is but describes her as not involved in her medical care and prefers to keep certain health matters private from him. - She has a supportive relationship with a nurse, Dat Dillard, who is aware of her health issues. Review of Systems - Ears: Reports intermittent ear pain in one ear, relieved temporarily by swimmer's solution. - Eyes: Reports intense, painful sensitivity to light post-cataract surgery. - Neurological: Reports memory issues, difficulty recalling specific details, and loss of taste [id number], now returned. Physical Exam General: Cooperative and healthy appearing Nutritional Appearance: Well nourished Orientation/consciousness: Patient oriented x3 Limitations: No limitations Head: Normal to inspection General: Appearance normal, both eyes and all related structures Neck: Normal visual inspection Chest: Normal palpation of entire chest wall Respiratory: N ormal respiratory effort Neurology: Patient oriented x3, reports memory issues, difficulty with mental calculations, and some memory recall challenges. Results Plan - Conduct an ear examination to assess the cause of ear pain and determine treatment. - Continue NSAIDs for photosensitivity, consider Advil with food or Celebrex if needed. - Monitor memory issues, perform blood work including cholesterol, B12, and thyroid levels. - Ensure completion of RSV vaccination, mammogram, and colonoscopy without anesthesia. Discussion Notes I discussed with the patient the option of using NSAIDs for her photosensitivity and advised trying [id number] Advil with food or considering Celebrex if necessary. We also talked about the importance of monitoring her memory issues and conducting blood work to check cholesterol, B12, and thyroid levels. I reassured her about the preventative care measures, including RSV vaccination, mammogram, and colonoscopy, and confirmed that her would not be informed of her medical details without her consent. Patient Instructions - Take Advil with food if using for eye inflammation, or consider Celebrex if advised by the doctor. - Monitor memory issues and report any significant changes. - Complete blood work as instructed, including fasting if required. - Ensure RSV vaccination, mammogram, and colonoscopy are up to date. Orders: Orders Influenza [id number] Immunization Today Z23 - Encounter for immunization Basic Metabolic Panel Today E78.5 - Hyperlipidemia, unspecified Thyroid Stimulating Hormone Today E78.5 - Hyperlipidemia, unspecified UA and rflx microscopic Today E78.5 - Hyperlipidemia, unspecified Complete Blood Count no Diff Today E78.5 - Hyperlipidemia, unspecified Lipid Panel Today E78.5 - Hyperlipidemia, unspecified Liver Panel Today E78.5 - Hyperlipidemia, unspecified Vitamin B12 and Folate Today E78.5 - Hyperlipidemia, unspecified
[2025-01-16 10:02] VITALS: BP 135/76; PULSE 80; RESP 14; TEMP 36.6; O2SAT 98; BMI 25.5
== END 2025-01-16 10:38 | disposition home or self-care (01) ==
LOC: HO.HMCSH 09:54
PROVIDERS: PCP Internal Medicine; Visit Provider Internal Medicine
DX: Z23 Encounter for immunization (principal); E78.5 Hyperlipidemia, unspecified

== ENCOUNTER → 2025-01-16 09:54 | Outpatient (BNVA) | payer MEDICARE, SELFPAY | PROVIDERS: PCP Internal Medicine; Visit Provider Internal Medicine | DX: H92.03 Otalgia, bilateral (principal); E78.5 Hyperlipidemia, unspecified; H53.19 Other subjective visual disturbances; R41.3 Other amnesia | CPT/HCPCS: 90471; 99212 ==

== ENCOUNTER 2025-03-01 06:46 | Outpatient (REF) | payer MEDICARE, SELFPAY ==
[2025-03-01 07:15] LABS: Hematocrit 43.8 % (37.0-47.0); Hemoglobin 14.3 g/dl (12.0-16.0); Mean Corpuscular HGB Conc 32.6 g/dl (31.0-35.0); Mean Corpuscular Hemoglobin 30.7 pg (27.0-33.0); Mean Corpuscular Volume 94.0 fL (80.0-98.0); NRBC Abs Auto 0.000 X10*3/uL (0.0-0.012); NRBC Pct Auto 0.0 /100WBC (0.0-0.2); Platelet Count 237 X10*3/uL (160-400); Red Blood Count 4.66 X10*6/uL (4.20-5.50); White Blood Count 7.2 X10*3/uL (4.8-10.8)
[2025-03-01 07:23] LABS: Appearance Urine Clear; Glucose Urine UA Negative (Negative); PH 6.5 (5.0-9.0); Specific Gravity - Urine 1.015 (1.005-1.025); UMIC TRIGGER UA YES
[2025-03-01 08:04] LABS: Alanine Aminotransferase 18 U/L (0-31); Albumin Level 4.3 g/dL (3.5-5.0); Alkaline Phosphatase 82 U/L (39-117); Anion Gap 9 (12-20); Aspartate Amino Transferase 25 U/L (5-31); Blood Urea Nitrogen 16 mg/dL (9-16); Calcium 8.7 mg/dL (8.4-10.2); Carbon Dioxide 28 mmol/L (22-29); Chloride 109 mmol/L (96-108); Cholesterol 205 mg/dL (<200); Estimated Glomerular Filt Rate > 60; HDL Cholesterol 64 mg/dL (>40); Potassium 3.8 mmol/L (3.3-5.1); Sodium 142 mmol/L (135-145); Total Protein 6.7 g/dL (6.5-8.0); Triglycerides 99 mg/dL (<150)
[2025-03-01 08:20] LABS: Thyroid Stimulating Hormone 1.54 uIU/mL (0.32-4.0)
[2025-03-01 08:27] LABS: Folate 8.9 ng/mL (> or = 4.0); Vitamin B12 457 pg/mL (200-900)
== END 2025-03-01 06:47 | disposition home or self-care (01) ==
LOC: HO.LAB 06:46
PROVIDERS: PCP Internal Medicine; Visit Provider Internal Medicine
DX: E78.5 Hyperlipidemia, unspecified (principal)
CPT/HCPCS: 36415; 80048; 80061; 80076; 81001; 82607; 82746; 84443; 85027